=== PATIENT | female | born 1995 | race Caucasian/White ===

== ENCOUNTER 2019-11-03 18:19 | Emergency (ER) | payer OTHER, SELFPAY ==
--- NOTE | ~2019-11-03 | CT_ITS ---
EXAMINATION: CT brain wo con DATE: 11/03/2019 23:22 INDICATION: Migraine headache with pain behind the right eye TECHNIQUE: Computed tomography (CT) of the head was performed without intravenous contrast. Sagittal and coronal reconstructions were performed. The mA was adjusted according to patient size. Iterative reconstruction technique was employed. The dose-length product was 605.33 mGy-cm. COMPARISON: None FINDINGS: No acute intracranial hemorrhage, acute infarction or abnormal extra axial fluid collection. Ventricl es are normal and symmetric. No mass/mass effect. The orbits, paranasal sinuses and mastoid air cells are normal. IMPRESSION: 1. Normal head CT. Reviewed, dictated and finalized at location A. OMER OPERATOR IMPRESSION: 1. Normal head CT.
[2019-11-03 18:49] VITALS: BP 129/76; PULSE 84; RESP 18; TEMP 37.3; O2SAT 100
[2019-11-03 20:34] VITALS: BP 139/86; PULSE 96; RESP 18; O2SAT 98
--- NOTE | 2019-11-03 21:55 | ED.GENADULT ---
HPI - General Adult General Chief complaint: Unspecified Stated complaint: sent by pmd for some kind of seizure Time Seen by Provider: 11/03/19 21:54 Source: patient Mode of arrival: ambulatory Limitations: no limitations History of Present Illness HPI narrative: A 24 y/o female presents to the ED with c/o sharp right sided FRANCO. She states that the FRANCO started this morning and has been constant since. She has a PMHx of FRANCO's and notes that they normally occur in the evenings. Her FRANCO is accompanied by eye pressure, nausea, confusion, trouble remembering things, photophobia, and the sides of her eyes pulsating. She denies vomiting and does not note any activities that cause the FRANCO's. Pt has been prescribed Excedrine for the FRANCO's, but notes that it causes heart palpitations so she does not take it. Ibuprofen does not alleviate the FRANCO. Pt also states that her whole life she has intermittently had BLE cramps where her muscles become extremely tense. She has never been evaluated for the muscle cramps before. For the past 2 weeks she notes that the muscle cramps have become more frequent and now includes all of the muscles in her body. The muscle cramps cause her to hold her breath, but she notes that she is awake and knows what is going on. Pt states that today she called Dr. Obrien for her migraines and told him about the muscle cramps. Dr. Obrien told the patient that the muscle cramps could be responsible for the migraines and advised the pt to go to the ED for further evaluation. She has a PMHx of kidney stones. Pt denies dysuria and hematuria. complaint: FRANCO Onset (ago): hour(s) (This morning) Location: head (Right sided) Pain Consistency: constant Relieving factors: none Exacerbating factors: none Associated symptoms: confusion, nausea/vomiting and other (Eye pressure, trouble remembering things, photophobia, sides of eyes pulsating, body cramps) Related Data Allergies Allergy/AdvReac Type Severity Reaction Status Date / Time metformin Allergy Unknown Headache Verified 04/19/18 11:25 Review of Systems Review of Systems: Narrative: CONSTITUTIONAL: Denies fever, chills, or sweats. EYES: Denies visual changes, redness, or discharge. Reports eye pressure, sides of eyes pulsating, and photophobia. ENT: Denies rhinorrhea, congestion, sore throat, or otalgia. CARDIOVASCULAR: Denies chest pain, palpitations, or edema. RESPIRATORY: Denies cough or dyspnea. GASTROINTESTINAL: Denies abdominal pain, vomiting, or diarrhea. Reports nausea. GENITOURINARY: Denies dysuria or hematuria. SKIN: Denies rash or itching. MUSCULOSKELETAL: Denies back pain, joint pain, or myalgia. Reports body cramps. NEUROLOGIC: Denies numbness or weakness. Reports right sided headache, trouble remembering things, and confusion. All systems reviewed & are unremarkable except as noted in HPI and below PMFSH Past Medical History Medical History (Updated 11/04/19 @ 00:13 by Rosa Kaba MD) Anemia Depression Diabetes Head ache Heart palpitations Kidney stones Seizure Due to anemia at age 1 Ulcer UTI (urinary tract infection) Surgical History Surgical History (Updated 11/03/19 @ 22:57 by Mell Perez) No pertinent past surgical history Family History Family History Father Family history of cardiovascular disease Social History Social History Smoking status: Former smoker Smoking end date: 09/27/17 Alcohol intake: never Gender identity (if verbalized by the patient): Female Exam Narrative: Exam Narrative: GENERAL: Well-appearing, well-nourished, and in no acute distress. HEAD: Normocephalic, atraumatic. EYES: PERRLA and EOMI. ENT: Nares clear, no rhinorrhea or epistaxis. Mucous membranes moist. NECK: Supple. CHEST: Clear to auscultation. No respiratory distress. HEART: Regular rate and rhythm. No murmur heard. Normal peripheral pulses. ABDOMEN: So
[2019-11-03 22:28] LABS: Basophils Percent Auto 0.2 % (0.2-1.2); Eosinophils Percent Auto 0.1 % (0-4.4); Hematocrit 41.6 % (37.0-47.0); Hemoglobin 13.4 g/dL (12.0-15.0); Immature Granulocyte Absolute 0.02 K/mm3 (0.00-0.031); Immature Granulocyte Percent A 0.2 % (0-0.5); Lymphocytes Absolute Auto 2.23 K/mm3 (0.9-3.2); Lymphocytes Percent Auto 24.8 % (18.3-44.2); Mean Corpuscular HGB Conc 32.2 g/dl (32-36); Mean Corpuscular Hemoglobin 29.8 pg (26-34); Mean Corpuscular Volume 92.7 fl (80-100); Mean Platelet Volume 10.1 fl (7.4-10.4); Monocytes Absolute Auto 0.5 K/mm3 (0.1-0.6); Neutrophils Absolute Auto 6.2 K/mm3 (1.3-6.7); Neutrophils Percent Auto 68.7 % (45.5-73.1); Platelet Count Result 387 k/mm3 (150-375); Red Blood Count 4.49 M/mm3 (4.2-5.4); Red Cell Distribution Width 12.4 % (11.5-14.5)
[2019-11-03 22:38] LABS: Creatine Kinase 33 U/L (30-135); Magnesium 2.2 mg/dL (1.6-2.3)
[2019-11-03] MEDS: SODIUM CHLORIDE 0.9% IV 1,000 ML 999 ML IV CONT (22:38)
[2019-11-03] MEDS: KETOROLAC 15 MG/ML VIAL (*BKC) IV PUSH (22:38)
[2019-11-03 23:42] LABS: Blood Urea Nitrogen 7 mg/dL (7-17); Calcium 9.1 mg/dL (8.4-10.2); Carbon Dioxide 22 mmol/L (22-30); Chloride 103 mmol/L (98-107); Estimated CRCL calculation 123 ml/min; Estimated Glomerular Filt Rate > 60; Glucose 86 mg/dL (65-105); Potassium 4.1 mmol/L (3.4-5.0); Sodium 138 mmol/L (137-145)
[2019-11-03 23:56] LABS: Add Urine Microscopic? YES; Appearance Urine Clear (Clear); Bacteria Urine Trace /hpf; Bilirubin Urine Negative (Negative); Blood Urine 1+ (Negative); Color Urine Yellow (Yellow); Glucose Urine UA Negative (Negative); Ketones Urine 1+ mg/dL (Negative); Leukocyte Esterase Ur Negative LEU/UL (Negative); Mucus Urine Heavy /lpf; Nitrate Urine Negative (Negative); Protein Urine Negative (Negative); RBC Urine 0-2 /hpf (0-2); Specific Grav Ur 1.027 (1.001-1.035); Squamous Epithelial Cell Urine Rare /hpf (Few); Urobilinogen Urine Negative mg/dL (<2.0); WBC Urine 0-3 /hpf
[2019-11-04 00:04] VITALS: BP 112/77; PULSE 70; RESP 18; O2SAT 97
== END 2019-11-04 00:26 | disposition home or self-care (01) ==
PROVIDERS: Emergency Provider Emergency Medicine; PCP Internal Medicine
DX: G43.009 Migraine without aura, not intractable, without status migrainosus (principal); Z86.2 Personal history of diseases of the blood and blood-forming organs and certain disorders involving the immune mechanism; E11.9 Type 2 diabetes mellitus without complications; Z87.442 Personal history of urinary calculi; Z87.891 Personal history of nicotine dependence; Z87.440 Personal history of urinary (tract) infections
CPT/HCPCS: 36415; 70450; 80048; 81001; 82550; 83735; 85025; 96361; 96374; 96375; 99284; J0131; J1100; J1200; J1885; J7030

== ENCOUNTER 2022-11-06 12:02 | Outpatient (CLI) | payer OTHER, SELFPAY ==
[2022-11-06 13:35] LABS: Free T4 Free Thyroxine 0.96 ng/mL (0.78-2.19)
[2022-11-06 13:58] LABS: Hemoglobin A1C 5.5 % (<5.7)
[2022-11-06 14:03] LABS: Alanine Aminotransferase 27 U/L (6-35); Albumin Level 4.2 g/dL (3.5-5.1); Alkaline Phosphatase 90 U/L (38-126); Anion Gap 7 mmol/L (8-16); Aspartate Amino Transferase 23 U/L (14-36); Bilirubin,Total 0.4 mg/dL (0.2-1.3); Blood Urea Nitrogen 8 mg/dL (7-17); Calcium 8.7 mg/dL (8.4-10.2); Carbon Dioxide 25 mmol/L (22-30); Chloride 108 mmol/L (98-107); Estimated Glomerular Filt Rate > 60; Glucose 101 mg/dL (65-110); Potassium 4.3 mmol/L (3.4-5.0); Sodium 140 mmol/L (137-145)
[2022-11-06 14:27] LABS: Thyroid Stimulating Hormone 0.646 uIU/mL (0.465-4.680); Total Triiodothyronine (T3) 1.49 NG/ML (0.97-1.69)
== END 2022-11-06 12:03 | disposition home or self-care (01) ==
LOC: ANHLAB 12:06
PROVIDERS: PCP Family Medicine; Visit Provider Family Medicine
DX: E03.9 Hypothyroidism, unspecified (principal); R73.09 Other abnormal glucose; I10 Essential (primary) hypertension
CPT/HCPCS: 36415; 80053; 83036; 84439; 84443; 84480

== ENCOUNTER 2022-11-21 11:19 | Emergency (ER) | payer OTHER, SELFPAY ==
[2022-11-21 11:45] VITALS: BP 114/67; PULSE 102; RESP 16; TEMP 36.9; O2SAT 99
--- NOTE | 2022-11-21 12:26 | ED.URI ---
HPI - URI/Sore Throat General Chief Complaint: Upper Respiratory Infection Stated Complaint: sore throat/fever/jara Time Seen by Provider: 11/21/22 12:26 History of Present Illness HPI Narrative: 27-year-old female presented for complaint of sore throat since yesterday. She endorses today prior she had right-sided neck and right ear pain. She endorses occasional headache and dizziness with a fever up to 102 with sweats. Also reports she has had tonsil stones and has attempted to remove them using a Waterpik. She denies nausea, vomiting, or diarrhea. She took a negative COVID test yesterday. She denies sick contacts. She has been taking Tylenol for symptoms. Related Data Home Medications Medication Instructions Recorded Confirmed drospirenone (contraceptive) 4 mg 1 tablet PO DAILY 11/06/22 11/21/22 (28) tablet (Slynd) Allergies Allergy/AdvReac Type Severity Reaction Status Date / Time metformin Allergy Mild Abdominal Verified 11/21/22 11:58 Pain Review of Systems Review of Systems: per HPI [facility] Past Medical History Medical History Anemia Depression Diabetes Diarrhea Fatigue Head ache Heart palpitations Kidney stones Migraine without status migrainosus 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 age 1 Ulcer UTI (urinary tract infection) Weight gain Surgical History Surgical History No pertinent past surgical history Family History Family History Father Family history of cardiovascular disease Social History Social History Social History: Single Smoking status: Never smoker Smoking end date: 09/27/17 Alcohol intake: current Alcohol use details: Occasionally Substance use: never Substance use type: does not use Living arrangements: with family Occupation/Education: occupation Gender identity (if verbalized by the patient): Female Exam Narrative: GENERAL: well-appearing, no acute distress. EYES: conjunctivae clear ENT: Mucous membranes moist. TMs pearly gomez with normal light reflex bilaterally; no tragal tenderness. Oropharynx erythematous without lesions. Tonsils not enlarged and without exudate or stone. No drooling, no hoarseness, no trismus, uvula midline. No tripod positioning, hot potato voice, or soft palate swelling. NECK: Supple. No lymphadenopathy CHEST: Clear to auscultation, breath sounds equal. No respiratory distress, speaks in full sentences. HEART: Regular rate and rhythm. No murmur heard. SKIN: Warm, dry, no rash. NEURO: Alert and oriented x3. Course Course Emergency Course: Patient is aware of diagnosis, understands and agrees to treatment plan. Anticipatory guidance given. Patient agrees to follow-up as directed and is aware of reasons to seek care at the emergency department. Portions of this record may have been created with voice recognition software Level of Care: Express Care Visit Vital Signs Vital signs: Vital Signs Temperature 98.5 F 11/21/22 11:45 Pulse Rate 102 H 11/21/22 11:45 Respiratory Rate 16 11/21/22 11:45 Blood Pressure 114/67 11/21/22 11:45 Pulse Oximetry 99 11/21/22 11:45 Oxygen Delivery Room Air 11/21/22 11:45 Temperature 98.5 F 11/21/22 11:45 Pulse Rate 102 H 11/21/22 11:45 Respiratory Rate 16 11/21/22 11:45 Blood Pressure 114/67 11/21/22 11:45 Pulse Oximetry 99 11/21/22 11:45 Oxygen Delivery Room Air 11/21/22 11:45 MDM - URI/Sore Throat MDM Narrative Medical decision making narrative: strep result reviewed with pt. Advise supportive treatments. Patient is appropriate for outpatient treatment and follow-up. Differential Diagnosis Differential diagnosis: Likely upper respiratory infection, viral
== END 2022-11-21 12:38 | disposition home or self-care (01) ==
PROVIDERS: Emergency Provider Nurse Practitioner Family
DX: J02.9 Acute pharyngitis, unspecified (principal); E11.9 Type 2 diabetes mellitus without complications
CPT/HCPCS: 87081; 87880; 99213; G0463

== ENCOUNTER 2022-11-22 10:56 | Emergency (ER) | payer OTHER, SELFPAY ==
--- NOTE | ~2022-11-22 | XR_ITS ---
XR chest 2V DATE: 11/22/2022 13:21 INDICATION: Cough, fever TECHNIQUE: November 22, 2022 PA and lateral chest COMPARISON: 08/26/2022, 11/16/2018 PA chest examinations FINDINGS: Chronic stable right cardiophrenic fat pad. Normal heart size. No hilar or mediastinal enlargement. No pulmonary infiltrate or consolidation, pleural effusion or pulmonary vascular congestion or pneumo thorax. Mild thoracic dextroscoliosis IMPRESSION: No active cardiopulmonary disease Reviewed, dictated and finalized at location A. ECTRIC PRESS OPERATOR
[2022-11-22 11:08] VITALS: BP 129/87; PULSE 102; RESP 16; TEMP 38; O2SAT 99
[2022-11-22 12:44] VITALS: BP 127/86; PULSE 93; RESP 18; TEMP 37.7; O2SAT 99
[2022-11-22 12:45] LABS: Basophils Percent Auto 0.4 % (0.2-1.2); Hematocrit 45.1 % (37.0-47.0); Hemoglobin 14.6 g/dL (12.0-15.0); Immature Granulocyte Absolute 0.01 K/mm3 (0.00-0.031); Immature Granulocyte Percent A 0.2 % (0-0.5); Lymphocytes Absolute Auto 0.76 K/mm3 (0.9-3.2); Lymphocytes Percent Auto 14.4 % (18.3-44.2); Mean Corpuscular HGB Conc 32.4 g/dl (32-36); Mean Corpuscular Hemoglobin 29.6 pg (26-34); Mean Corpuscular Volume 91.5 fl (80-100); Mean Platelet Volume 9.9 fl (7.4-10.4); Monocytes Absolute Auto 0.6 K/mm3 (0.1-0.6); Monocytes Percent Auto 11.2 % (2.6-8.5); Neutrophils Absolute Auto 3.9 K/mm3 (1.3-6.7); Neutrophils Percent Auto 73.8 % (45.5-73.1); Platelet Count Result 301 k/mm3 (150-375); Red Blood Count 4.93 M/mm3 (4.2-5.4); Red Cell Distribution Width 13.2 % (11.5-14.5); White Blood Count 5.3 K/mm3 (4.5-10.0)
[2022-11-22 12:57] LABS: Alanine Aminotransferase 39 U/L (6-35); Albumin Level 4.2 g/dL (3.5-5.1); Alkaline Phosphatase 79 U/L (38-126); Anion Gap 6 mmol/L (8-16); Aspartate Amino Transferase 30 U/L (14-36); Bilirubin,Total 0.3 mg/dL (0.2-1.3); Blood Urea Nitrogen 7 mg/dL (7-17); Calcium 8.5 mg/dL (8.4-10.2); Carbon Dioxide 24 mmol/L (22-30); Chloride 103 mmol/L (98-107); Estimated CRCL calculation 111 ml/min; Estimated Glomerular Filt Rate > 60; Glucose 109 mg/dL (65-110); Potassium 4.2 mmol/L (3.4-5.0); Sodium 133 mmol/L (137-145)
[2022-11-22 13:08] LABS: Strep Group A RT-PCR NOT DETECTED (Negative)
[2022-11-22 13:12] LABS: Monoscreen Negative (Negative); Negative Monotest Control Negative (Negative); Positive Monotest Control Positive (Positive)
[2022-11-22 13:22] LABS: Influenza A QL RT-PCR Negative (Negative); Influenza B QL RT-PCR Negative (Negative); RSV RNA, RT-PCR Negative (Negative); SARS-CoV-2 RNA PCR Positive
[2022-11-22] MEDS: ACETAMINOPHEN 500 MG TABLET 1000 MG PO (13:26)
--- NOTE | 2022-11-22 13:51 | ED.URI ---
HPI - URI/Sore Throat General Chief Complaint: Upper Respiratory Infection Stated Complaint: tonsil stones, sore throat Time Seen by Provider: 11/22/22 13:09 Source: patient Mode of arrival: ambulatory Limitations: no limitations History of Present Illness HPI Narrative: This is a 27-year-old female that presents to the emergency department for cold symptoms present over the last 3 days. Reports fever, cough, sore throat, and otalgia. She was seen at the urgent care and had a negative strep test. She also did a home COVID test the first day of symptoms which was negative. She has not been COVID vaccinated. Denies shortness of breath. Related Data Home Medications Medication Instructions Recorded Confirmed drospirenone (contraceptive) 4 mg 1 tablet PO DAILY 11/06/22 11/21/22 (28) tablet (Slynd) Allergies Allergy/AdvReac Type Severity Reaction Status Date / Time metformin Allergy Mild Abdominal Verified 11/21/22 11:58 Pain Review of Systems Review of Systems: CONSTITUTIONAL: Reports fever ENT: Reports congestion, sore throat, and otalgia. RESPIRATORY: Reports cough. Denies dyspnea. All systems reviewed & are unremarkable except as noted in HPI and below PMFSH Past Medical History Medical History Anemia Depression Diabetes Diarrhea Fatigue Head ache Heart palpitations Kidney stones Migraine without status migrainosus 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 age 1 Ulcer UTI (urinary tract infection) Weight gain Surgical History Surgical History No pertinent past surgical history Family History Family History Father Family history of cardiovascular disease Social History Social History Social History: Single Smoking status: Never smoker Smoking end date: 09/27/17 Alcohol intake: current Alcohol use details: Occasionally Substance use: never Substance use type: does not use Living arrangements: with family Occupation/Education: occupation Gender identity (if verbalized by the patient): Female Exam Narrative: GENERAL: Well-appearing, well-nourished, and in no acute distress. HEAD: Normocephalic, atraumatic. EYES: EOMI. ENT: Nares clear, no rhinorrhea or epistaxis. Mucous membranes moist. Oropharynx with redness, without tonsillar hypertrophy. Uvula midline. Bilateral TMs pearly gomez non-bulging NECK: Supple. No adenopathy or masses. CHEST: Clear to auscultation. No respiratory distress. No wheezes rales or rhonchi HEART: Regular rate and rhythm. No murmur heard. Normal peripheral pulses. ABDOMEN: Soft, nontender, nondistended, normal active bowel sounds. EXTREMITIES: Normal range of motion. No edema. SKIN: Warm, dry, no rash. NEURO: No focal deficits. Alert and oriented x3. PSYCH: Normal mood and affect Course Course Emergency Course: Patient updated on work-up and agrees with plan of care Vital Signs Vital signs: Vital Signs Temperature 100.4 F H 11/22/22 11:08 Pulse Rate 102 H 11/22/22 11:08 Respiratory Rate 16 11/22/22 11:08 Blood Pressure 129/87 11/22/22 11:08 Pulse Oximetry 99 11/22/22 11:08 Oxygen Delivery Room Air 11/22/22 11:08 Temperature 99.8 F H 11/22/22 12:44 Pulse Rate 93 11/22/22 12:44 Respiratory Rate 18 11/22/22 12:44 Blood Pressure 127/86 11/22/22 12:44 Pulse Oximetry 99 11/22/22 12:44 Oxygen Delivery Room Air 11/22/22 11:08 MDM - URI/Sore Throat MDM Narrative Medical decision making narrative: Patient presents to the emergency department for cold symptoms ongoing over the last couple of days. Febrile upon arrival, she had just taken an antipyretic prior to arrival. Temperature did down trended. Oxygen saturation is normal on ro
== END 2022-11-22 14:56 | disposition home or self-care (01) ==
PROVIDERS: General Practice; Emergency Provider Physician Assistant; PCP Family Medicine
DX: U07.1 COVID-19 (principal); E11.9 Type 2 diabetes mellitus without complications; Z28.310 Unvaccinated for COVID-19; Z86.2 Personal history of diseases of the blood and blood-forming organs and certain disorders involving the immune mechanism; Z87.442 Personal history of urinary calculi; Z87.440 Personal history of urinary (tract) infections; Z87.891 Personal history of nicotine dependence
CPT/HCPCS: 36415; 71046; 80053; 81025; 85025; 86308; 87637; 87651; 99283; A9270

== ENCOUNTER 2022-11-25 23:27 | Emergency (ER) | payer OTHER, SELFPAY ==
[2022-11-25 23:31] VITALS: BP 128/92; PULSE 88; RESP 20; TEMP 36.9; O2SAT 98
--- NOTE | 2022-11-26 05:07 | PC.NURSE ---
no answer at triage
== END 2022-11-26 05:07 | disposition left against medical advice (07) ==
LOC: ANHED 11-26 05:11
PROVIDERS: PCP Family Medicine
DX: Z53.21 Procedure and treatment not carried out due to patient leaving prior to being seen by health care provider (principal)
CPT/HCPCS: 99199

== ENCOUNTER 2023-03-08 10:24 | Outpatient (CLI) | payer OTHER, SELFPAY ==
[2023-03-08 13:34] LABS: Alanine Aminotransferase 24 U/L (6-35); Albumin Level 4.2 g/dL (3.5-5.1); Alkaline Phosphatase 92 U/L (38-126); Anion Gap 6 mmol/L (8-16); Aspartate Amino Transferase 26 U/L (14-36); Bilirubin,Total 0.2 mg/dL (0.2-1.3); Blood Urea Nitrogen 10 mg/dL (7-17); Calcium 8.8 mg/dL (8.4-10.2); Carbon Dioxide 24 mmol/L (22-30); Chloride 106 mmol/L (98-107); Estimated Glomerular Filt Rate > 60; Glucose 103 mg/dL (65-110); Potassium 4.4 mmol/L (3.4-5.0); Sodium 136 mmol/L (137-145)
== END 2023-03-08 10:25 | disposition home or self-care (01) ==
PROVIDERS: PCP Family Medicine; Visit Provider Nurse Practitioner Family
DX: R00.2 Palpitations (principal)
CPT/HCPCS: 36415; 80053

== ENCOUNTER 2023-04-06 12:01 | Emergency (ER) | payer OTHER, SELFPAY ==
--- NOTE | ~2023-04-06 | XR_ITS ---
Clinical Indication: Chest pain PA and lateral views of the chest: Comparison: 11/22/2022 Findings: The lungs are clear, without evidence of focal consolidation or pleural effusion. Cardiome diastinal silhouette is stable. Bones and soft tissues are unremarkable. Impression: Clear lungs. Reviewed, dictated and finalized at location . Impression: Clear lungs.
--- NOTE | 2023-04-06 12:03 | ECG_ITS ---
Measurements Intervals Mears Rate: 83 P: 0 CO: 143 QRS: 15 QRSD: 84 T: 20 QT: 329 QTc: 387 Interpretive Statements SINUS RHYTHM BASELINE ARTIFACT- III, AVF NORMAL ECG NO PREVIOUS ECG AVAILABLE FOR COMPARISON Electronically Signed On 04-06-2023 12:16:58 CDT by David Hoang D.O.
[2023-04-06 12:08] VITALS: BP 153/95; PULSE 86; RESP 16; TEMP 37.1; O2SAT 99
[2023-04-06 12:15] VITALS: PULSE 120
[2023-04-06] MEDS: ASPIRIN 81 MG CHEWABLE TABLET 324 MG PO (12:21)
--- NOTE | 2023-04-06 12:25 | ED.ARRPALP ---
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 Patient reports numbness of both hands and general fatigue over the last 2 days. Patient is concerned about her health lately and the possibility of POTS. Is scheduled for Holter monitor next week. History of bipolar. Related Data Home Medications Medication Instructions Recorded Confirmed drospirenone (contraceptive) 4 mg 1 tablet PO DAILY 11/06/22 11/21/22 (28) tablet (Slynd) Allergies Allergy/AdvReac Type Severity Reaction Status Date / Time metformin Allergy Mild Abdominal Verified 04/06/23 12:16 Pain Review of Systems Review of Systems: All systems reviewed & are unremarkable except as noted in HPI and below PMFSH Past Medical History Medical History Anemia Depression Diarrhea Fatigue Head ache Heart palpitations Kidney stones Migraine without status migrainosus 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 age 1 Ulcer UTI (urinary tract infection) Weight gain Surgical History Surgical History No pertinent past surgical history Family History Family History (Updated 03/04/23 @ 11:19 by Mary Ang APRN) Grandparent Family history of cardiovascular disease in 40's dad's side Other Family history of cardiovascular disease in his 40's Social History Social History (Updated 03/04/23 @ 10:59 by Mila Camarillo MA) Social History: Single Smoking status: Never smoker Smoking end date: 09/27/17 Alcohol intake: current Alcohol use details: Occasionally Substance use: never Substance use type: does not use Lack of Transportation: No Lack of Food: Never True Current Housing: I Have Housing Concerned About Future Housing: No Difficulty Paying Gas/Electric Bills: No Currently Unemployed: No Education: High School Diploma/GED Difficulty w/ Childcare or Family Care: No Living arrangements: with family Occupation/Education: occupation Gender identity (if verbalized by the patient): Female Exam Narrative: General appearance: Well-developed, well-nourished Skin: Normal color Head: Normocephalic, nontraumatic Eyes: Clear conjunctiva ENT: Oropharynx normal, ears normal, nose normal Neck: Supple, nontender Chest and respiratory: Airway patent, no respiratory distress, no accessory muscle use Heart: Regular rate/rhythm Abdomen: Soft, nontender, no organomegaly, quiet bowel sounds Vascular: Normal peripheral pulses, normal capillary refill. Musculoskeletal: Normal range of motion, nontender back Neurologic: Alert and oriented ?3, PRODUCT PLANNER is normal as tested, no gross motor deficit Course Vital Signs Vital signs: Vital Signs Temperature 37.1 C 04/06/23 12:08 Pulse Rate 86 04/06/23 12:08 Respiratory Rate 16 04/06/23 12:08 Blood Pressure 153/95 H 04/06/23 12:08 Pulse Oximetry 99 04/06/23 12:08 Oxygen Delivery Room Air 04/06/23 12:08 Temperature 37.1 C 04/06/23 12:08 Pulse Rate 80 04/06/23 13:02 Respiratory Rate 23 H 04/06/23 13:02 Blood Pressure 162/104 H 04/06/23 13:02 Pulse Oximetry 9
[2023-04-06 12:53] LABS: Basophils Percent Auto 0.4 % (0.2-1.2); Eosinophils Percent Auto 0.1 % (0-4.4); Hematocrit 48.4 % (37.0-47.0); Hemoglobin 15.6 g/dL (12.0-15.0); Immature Granulocyte Absolute 0.03 K/mm3 (0.00-0.031); Immature Granulocyte Percent A 0.4 % (0-0.5); Lymphocytes Absolute Auto 1.39 K/mm3 (0.9-3.2); Lymphocytes Percent Auto 20.7 % (18.3-44.2); Mean Corpuscular HGB Conc 32.2 g/dl (32-36); Mean Corpuscular Hemoglobin 29.7 pg (26-34); Mean Corpuscular Volume 92.2 fl (80-100); Monocytes Absolute Auto 0.4 K/mm3 (0.1-0.6); Monocytes Percent Auto 5.4 % (2.6-8.5); Neutrophils Absolute Auto 4.9 K/mm3 (1.3-6.7); Platelet Count Result 361 k/mm3 (150-375); Red Blood Count 5.25 M/mm3 (4.2-5.4); Red Cell Distribution Width 12.7 % (11.5-14.5); White Blood Count 6.7 K/mm3 (4.5-10.0)
[2023-04-06 13:02] VITALS: BP 162/104; PULSE 80; RESP 23; O2SAT 96
[2023-04-06 13:02] LABS: Alanine Aminotransferase 25 U/L (6-35); Albumin Level 4.8 g/dL (3.5-5.1); Alkaline Phosphatase 79 U/L (38-126); Anion Gap 7 mmol/L (8-16); Aspartate Amino Transferase 24 U/L (14-36); Bilirubin,Total 0.4 mg/dL (0.2-1.3); Blood Urea Nitrogen 12 mg/dL (7-17); Calcium 9.5 mg/dL (8.4-10.2); Carbon Dioxide 27 mmol/L (22-30); Chloride 105 mmol/L (98-107); Estimated CRCL calculation 124 ml/min; Estimated Glomerular Filt Rate > 60; Glucose 113 mg/dL (65-110); INR 0.9; Lipase 97 U/L (23-300); Potassium 4.1 mmol/L (3.4-5.0); Prothrombin Time 12.7 Seconds (11.1-14.7); Sodium 139 mmol/L (137-145)
[2023-04-06] MEDS: LORazepam (*CRX) 0.5 MG TABLET 1 MG PO (13:02)
[2023-04-06 13:03] LABS: Partial Thromboplastin Time 26.1 SECONDS (22.3-36.8)
[2023-04-06 13:14] LABS: Troponin I < 0.012 ng/mL (0.000-0.034)
[2023-04-06 13:34] LABS: Thyroid Stimulating Hormone 0.932 uIU/mL (0.465-4.680)
== END 2023-04-06 14:06 | disposition home or self-care (01) ==
PROVIDERS: Preventive Medicine Aerospace Medicine; Emergency Provider Emergency Medicine; PCP Nurse Practitioner Family
DX: R00.2 Palpitations (principal); R20.2 Paresthesia of skin; D64.9 Anemia, unspecified; F32.A Depression, unspecified; Z87.440 Personal history of urinary (tract) infections
CPT/HCPCS: 36415; 71046; 80053; 81025; 83690; 84443; 84484; 85025; 85610; 85730; 93005; 99284; A9270

== ENCOUNTER 2023-04-12 08:26 | Outpatient (CLI) | payer OTHER, SELFPAY ==
--- NOTE | 2023-04-12 08:50 | ECHO_ITS ---
Patient Info Name: Niurka Ellis Age: 28 years : 1995 Gender: Female Ht: 61 in Wt: 213 lbs BSA: 2.09 m2 HR: 66 bpm BP: 122 / 66 mmHg Heart Rhythm: Sinus Rhythm Technical Quality: Good Exam Date: 04/12/2023 9:05 AM Exam Location: [facility] Pulmonary Patient Status: Outpatient Admit Date: 04/12/2023 Staff Ordering Physician: Mary Ang APRN Solar Thermal Technician: Devora Robles RDCS Attending Provider: Mary Ang APRN Referring Physician: Ashia GOYAL; Exam Type: CA echo doppler color flow Study Info Indications R00.2 - Palpitations Complete two-dimensional, color flow and Doppler transthoracic echocardiogram is performed. Summary 1. Complete two-dimensional, color flow and Doppler transthoracic echocardiogram is performed. 2. Left ventricular chamber dimension is normal. 3. Left ventricular systolic function is normal, estimated at 55-60%. 4. The left ventricular diastolic function is normal. 5. E/e' 7 is not elevated. Left Ventricle E/e' 7 is not elevated. Left ventricular chamber dimension is normal. Left ventricular systolic function is normal, estimated at 55-60%. The left ventricular diastolic function is normal. Right Ventricle Right ventricular chamber dimension is normal. Right ventricular systolic function is normal. Left Atria Left atrial chamber dimension is normal. Right Atria Right atrial chamber dimension is normal. Aortic Valve The aortic valve is trileaflet. There is no aortic valve stenosis. There is no aortic valve regurgitation. Pulmonic Valve There is no pulmonic regurgitation. Mitral Valve There is no mitral valve stenosis. There is no mitral valve regurgitation. Tricuspid Valve There is no tricuspid valve regurgitation. Pericardium/Pleural There is no pericardial effusion. Inferior Vena Cava Normal inferior vena cava with >50% collapse upon inspiration consistent with normal right atrial pressure, 5 mmHg. Aorta The aortic root size at the sinus of Valsalva is normal. Left Ventricular Outflow Tract Name Value Normal LVOT 2D LVOT Diameter 1.9 cm LVOT Doppler LVOT Peak Gradient 3 mmHg LVOT Mean Gradient 1 mmHg LVOT VTI 17 cm LVOT VTI/AV VTI Ratio 0.6 LVOT Stroke Volume 48 ml LVOT CO 2.7 l/min LVOT CI 1.3 l/min/m2 Pulmonic Valve Name Value Normal RVOT Doppler RVOT Peak Gradient 1 mmHg PV Doppler PV Peak Gradient 3 mmHg Mitral Valve Name Value Normal MV Doppler
--- NOTE | 2023-04-15 15:31 | WPDHOLTEREM ---
Holter/Event Monitor Holter/Event Monitor Date of procedure: 04/12/23 Holter/Event Procedure: 48 Hr Holter Monitor Indications: Palpitations Conclusion: 1. 48 hour holter monitor on 04/12/23. 2. Underlying rhythm is sinus rhythm. HR range 44-140 bpm; average HR 72 bpm. 3. There are 2 premature supraventricular complexes. No supraventricular tachycardia. 4. No premature ventricular complexes. No ventricular tachycardia. 5. No sinoatrial or atrioventricular blocks. No significant pauses greater than 2 seconds. 6. No symptoms available for correlation.
--- NOTE | 2023-04-15 15:33 | WPDHOLTEREM ---
Holter/Event Monitor Holter/Event Monitor Date of procedure: 04/13/23 Holter/Event Procedure: 48 Hr Holter Monitor Indications: Abnormal EKG Conclusion: 1. 48 hour holter monitor on 04/13/23. 2. Underlying rhythm is sinus rhythm. HR range 54-117 bpm; average HR 79 bpm. 3. There are 97 premature supraventricular complexes, 8 supraventricular couplets, 1 supraventricular triplet. No supraventricular tachycardia. 4. There are 194 premature ventricular complexes. No ventricular tachycardia. 5. No sinoatrial or atrioventricular blocks. No significant pauses greater than 2 seconds. 6. No symptoms available for correlation.
== END 2023-04-12 08:27 | disposition home or self-care (01) ==
PROVIDERS: PCP Nurse Practitioner Family; Visit Provider Nurse Practitioner Family
DX: R00.2 Palpitations (principal)
CPT/HCPCS: 93225; 93226; 93306

== ENCOUNTER 2023-06-17 19:21 | Emergency (ER) | payer OTHER, SELFPAY ==
[2023-06-17 19:30] VITALS: BP 132/84; PULSE 88; RESP 16; TEMP 36.9; O2SAT 100
[2023-06-17 19:31] VITALS: BP 132/84; PULSE 88; RESP 16; TEMP 36.9; O2SAT 100
--- NOTE | 2023-06-17 19:54 | ED.EAR ---
HPI - Ear Problem General Chief complaint: Ear Stated complaint: Ears Irritation Time Seen by Provider: 06/17/23 19:45 Source: patient, RN notes reviewed and old records reviewed Mode of arrival: ambulatory Limitations: no limitations History of Present Illness HPI Narrative: 28 year old female who [facility] with complaints of bilateral ear pain with right ear greater than left for a couple months with increased pain today with feelings of dizziness and some sore throat. Patient reports that she has been taking Claritin and also Benadryl for her symptoms. Patient reports history of allergies and ear problems. Patient reports also some sore throat pain today , denies any known fevers or body aches. MD Complaint: ear pain and other (sore throat) Location: bilateral (right worse than left) Severity: moderate Discharge from ear: Reports yes - clear (report some yellow also) Treatment prior to arrival: oral analgesic Related Data Home Medications Medication Instructions Recorded Confirmed drospirenone (contraceptive) 4 mg 1 tablet PO DAILY 11/06/22 06/17/23 (28) tablet (Slynd) Allergies Allergy/AdvReac Type Severity Reaction Status Date / Time metformin Allergy Mild Abdominal Verified 06/17/23 19:30 Pain Review of Systems Review of Systems: CONSTITUTIONAL: Denies malaise, chills, sweats, or fever. EYES: Denies visual changes, redness, or discharge. ENT: Reports rhinorrhea, congestion,no sinus pain, bilateral otalgia and sore throat.some dizziness today at times CARDIOVASCULAR: Denies chest pain, palpitations, or edema. RESPIRATORY: Reports no cough.? Denies dyspnea. GASTROINTESTINAL: Denies abdominal pain, nausea, vomiting, diarrhea SKIN: Denies rash or itching. MUSCULOSKELETAL: Denies myalgia. NEUROLOGIC: Denies headache. All systems reviewed & are unremarkable except as noted in HPI and below PMFSH Past Medical History Medical History Anemia Depression Diarrhea Fatigue Head ache Heart palpitations Kidney stones Migraine without status migrainosus 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 age 1 Ulcer UTI (urinary tract infection) Weight gain Surgical History Surgical History No pertinent past surgical history Family History Family History Grandparent Family history of cardiovascular disease in 40's dad's side Other Family history of cardiovascular disease in his 40's Social History Social History Social History: Single Smoking status: Never smoker Smoking end date: 09/27/17 Alcohol intake: current Alcohol use details: Occasionally Substance use: never Substance use type: does not use Lack of Transportation: No Lack of Food: Never True Current Housing: I Have Housing Concerned About Future Housing: No Difficulty Paying Gas/Electric Bills: No Difficulty Paying for Meds: No Currently Unemployed: No Education: High School Diploma/GED Difficulty w/ Childcare or Family Care: No Living arrangements: with family Occupation/Education: occupation Gender identity (if verbalized by the patient): Female Comments At time of signature, agree with nursing past medical, surgical, social and family history. There is no relevant family history pertinent to the presenting complaint Exam Narrative: GENERAL: Well-appearing, well-nourished, and in no acute distress. HEAD: Normocephalic EYES: PERRLA, conjunctivae clear ENT: Nares clear, turbinates edematous and erythematous, clear discharge. Mucous membranes moist.Tight TM red Left TM pearly gomez with dull light reflex bilaterally; no tragal tenderness. Oropharynx erythematous without lesions. Tonsils red e
== END 2023-06-17 20:08 | disposition home or self-care (01) ==
PROVIDERS: Emergency Provider Registered Nurse; PCP Nurse Practitioner Family
DX: H66.90 Otitis media, unspecified, unspecified ear (principal); J02.9 Acute pharyngitis, unspecified
CPT/HCPCS: 87081; 87880; 99213; G0463

== ENCOUNTER 2023-08-17 19:30 | Emergency (ER) | payer OTHER, SELFPAY ==
--- NOTE | ~2023-08-17 | US_ITS ---
EXAMINATION: US right upper quadrant DATE: 08/17/2023 20:56 INDICATION: Pardo sign positive TECHNIQUE: Multiple grayscale and Doppler ultrasound images of the right upper quadrant were obtained . COMPARISON: CT abdomen pelvis 01/27/2017. FINDINGS: Enlarged echogenic pancreas. No mass noted in the pancreatic bed. The liver is normal with normal echogenicity and echotexture. No surface nodularity. Normal hepatopetal flow in the main lenore l vein. The gallbladder is normal with no abnormal wall thickening, pericholecystic fluid or stones. The common bile duct measures 4 mm. There was no sonographic Pardo sign. IMPRESSION: Enlarged echogenic pancreas which can be seen with pancreatitis. Correlate with pancreatic labs. Otherwise normal right upper quadrant ultrasound findings. Specifically, there were no sonographic fi ndings of acute cholecystitis. Reviewed, dictated and finalized at location [facility] IMPRESSION: Enlarged echogenic pancreas which can be seen with pancreatitis. Correlate with pancreatic labs. Otherwise normal right upper quadrant ultrasound findings. Specifically, there were no sonographic findings of acute cholecystitis.
[2023-08-17 19:32] VITALS: BP 145/88; PULSE 105; RESP 16; TEMP 36.4; O2SAT 99
--- NOTE | 2023-08-17 19:40 | ED.BACK ---
HPI - Back Pain/Injury General Chief Complaint: Back Pain/Injury Stated Complaint: back pain Time Seen by Provider: 08/17/23 19:39 Source: patient Mode of arrival: ambulatory Limitations: no limitations History of Present Illness HPI Narrative: This is a 28 yo female who presents with complaint of right-sided abdominal/flank pain. She has a history of renal calculi. She describes the pain as throbbing/aching; doesn't radiate to groin. She has been taking ibuprofen. She also started having nausea and diarrhea but denies any vomiting or bloody stools. The pain is worse with eating. She denies any fever but has been feeling sweaty. No hematuria, dysuria, urinary urgency or frequency. LMP is unknown as she takes control pill daily. She was experiencing a sharp pain in her RUQ and pain at her shoulder which prompted her co-workers to urge her to leave work and come to the ED. She states her caffeine intake is minimal ever since her previous kidney stone. 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 1 Ulcer UTI (urinary tract infection) Weight gain Surgical History Surgical History No pertinent past surgical history Family History Family History Grandparent Family history of cardiovascular disease in 40's dad's side Other Family history of cardiovascular disease in his 40's Social History Social History Social History: Single Smoking status: Never smoker Smoking end date: 09/27/17 Alcohol intake: current Alcohol use details: Occasionally Substance use: never Substance use type: does not use Lack of Transportation: No Lack of Food: Never True Current Housing: I Have Housing Concerned About Future Housing: No Difficulty Paying Gas/Electric Bills: No Difficulty Paying for Meds: No Currently Unemployed: No Education: High School Diploma/GED Difficulty w/ Childcare or Family Care: No Living arrangements: with family Occupation/Education: occupation Gender identity (if verbalized by the patient): Female Exam Narrative: GENERAL: Well-appearing, well-nourished, and in no acute distress. HEAD: Normocephalic, atraumatic. EYES: EOMI. No photophobia ENT: Nares clear, no rhinorrhea or epistaxis. Mucous membranes moist. NECK: Supple. CHEST: No respiratory distress. HEART: Tachycardic rate and rhythm. ABDOMEN: Soft, nontender, nondistended. Pardo sign positive. EXTREMITIES: Normal range of motion. No edema. SKIN: Warm, dry, no rash. No overlying ecchymosis NEURO: No focal deficits. Alert and oriented x3. PSYCH: Normal mood and affect. Course Vital Signs Vital signs: Vital Signs Temperature 97.5 F L 08/17/23 19:32 Pulse Rate 105 H 08/17/23 19:32 Respiratory Rate 16 08/17/23 19:32 Blood Pressure 145/88 H 08/17/23 19:32 Pulse Oximetry 99 08/17/23 19:32 Oxygen Delivery Room Air 08/17/23 19:32 Temperature 97.5 F L 08/17/23 19:32 Pulse Rate 67 08/17/23 21:47 Respiratory Rate 16 08/17/23 21:47 Blood Pressure 147/98 H 08/17/23 21:47 Pulse Oximetry 100 08/17/23 21:47 Oxygen Delivery Room Air 08/17/23 19:32 MDM - Back Pain/Injury MDM Narrative Medical decision making narrative: Patie
[2023-08-17 20:05] LABS: Appearance Urine Clear (Clear); Bilirubin Urine Negative (Negative); Blood Urine Negative (Negative); Color Urine Yellow (Yellow); Glucose Urine UA Negative (Negative); Ketones Urine Negative (Negative); Leukocyte Esterase Ur Negative LEU/UL (Negative); Nitrate Urine Negative (Negative); Protein Urine Negative (Negative); Specific Grav Ur 1.007 (1.001-1.035); Urobilinogen Urine 0.2 mg/dL (<2.0); pH Urine 5.5 (5.0-9.0)
[2023-08-17 20:08] LABS: Add Urine Microscopic? NO
[2023-08-17 20:13] LABS: Basophils Percent Auto 0.4 % (0.2-1.2); Eosinophils Percent Auto 0.1 % (0-4.4); Hematocrit 43.4 % (37.0-47.0); Hemoglobin 13.7 g/dL (12.0-15.0); Immature Granulocyte Absolute 0.02 K/mm3 (0.00-0.031); Immature Granulocyte Percent A 0.3 % (0-0.5); Lymphocytes Absolute Auto 2.19 K/mm3 (0.9-3.2); Lymphocytes Percent Auto 28.4 % (18.3-44.2); Mean Corpuscular HGB Conc 31.6 g/dl (32-36); Mean Corpuscular Hemoglobin 29.7 pg (26-34); Mean Corpuscular Volume 93.9 fl (80-100); Mean Platelet Volume 9.8 fl (7.4-10.4); Monocytes Absolute Auto 0.4 K/mm3 (0.1-0.6); Monocytes Percent Auto 5.7 % (2.6-8.5); Neutrophils Percent Auto 65.1 % (45.5-73.1); Platelet Count Result 363 k/mm3 (150-375); Red Blood Count 4.62 M/mm3 (4.2-5.4); Red Cell Distribution Width 12.9 % (11.5-14.5); White Blood Count 7.7 K/mm3 (4.5-10.0)
[2023-08-17] MEDS: MORPHINE SULFATE (*CRX) 4 MG/ML INJ IV PUSH (20:14)
[2023-08-17] MEDS: SODIUM CHLORIDE 0.9% IV 1,000 ML 999 ML IV CONT (20:14)
[2023-08-17] MEDS: ONDANSETRON INJ 4 MG/2 ML VIAL IV PUSH (20:14)
[2023-08-17 20:25] LABS: Alanine Aminotransferase 20 U/L (6-35); Albumin Level 4.2 g/dL (3.5-5.1); Alkaline Phosphatase 76 U/L (38-126); Anion Gap 7 mmol/L (8-16); Aspartate Amino Transferase 32 U/L (14-36); Bilirubin,Total 0.4 mg/dL (0.2-1.3); Blood Urea Nitrogen 8 mg/dL (7-17); Carbon Dioxide 28 mmol/L (22-30); Chloride 105 mmol/L (98-107); Estimated CRCL calculation 123 ml/min; Estimated Glomerular Filt Rate > 60; Glucose 92 mg/dL (65-110); Lipase 115 U/L (23-300); Potassium 4.4 mmol/L (3.4-5.0); Sodium 140 mmol/L (137-145)
[2023-08-17] MEDS: IBUPROFEN 600 MG TABLET PO (21:34)
[2023-08-17] MEDS: ACETAMINOPHEN 500 MG TABLET 1000 MG PO (21:34)
[2023-08-17] MEDS: BELLADONNA ALK/PHENOB ELIX 10 ML, MAG HYDROX/ALUMINUM HYD/SIMETH 30 ML, LIDOCAINE HCL 2... PO (21:35)
[2023-08-17 21:47] VITALS: BP 147/98; PULSE 67; RESP 16; O2SAT 100
== END 2023-08-17 21:52 | disposition home or self-care (01) ==
PROVIDERS: Emergency Provider Student in an Organized Health Care Education/Training Program; PCP Nurse Practitioner Family
DX: M54.9 Dorsalgia, unspecified (principal); D64.9 Anemia, unspecified; F32.A Depression, unspecified; Z87.442 Personal history of urinary calculi
CPT/HCPCS: 36415; 76705; 80053; 81003; 81025; 82248; 83690; 85025; 96361; 96374; 96375; 99284; A9270; J2270; J2405; J7030

== ENCOUNTER 2023-09-23 09:48 | Emergency (ER) | payer OTHER, SELFPAY ==
[2023-09-23 10:11] VITALS: BP 119/67; PULSE 86; RESP 16; TEMP 37.1; O2SAT 99
--- NOTE | 2023-09-23 10:40 | ED.URI ---
HPI - URI/Sore Throat General Chief Complaint: Upper Respiratory Infection Stated Complaint: Sore Throat Time Seen by Provider: 09/23/23 10:41 Source: patient, RN notes reviewed and old records reviewed Mode of arrival: ambulatory Limitations: no limitations History of Present Illness HPI Narrative: 28 Year old female presents to the [facility] with complaints of sore throat, runny nose, congestion, ear pain, dry cough, body aches and fevers since yesterday. Has taken a dose of Tylenol, a dose of ibuprofen and 1 dose of Mucinex with no relief. Related Data Home Medications Medication Instructions Recorded Confirmed drospirenone (contraceptive) 4 mg 1 tablet PO DAILY 11/06/22 09/23/23 (28) tablet (Slynd) Allergies Allergy/AdvReac Type Severity Reaction Status Date / Time metformin Allergy Mild Abdominal Verified 09/23/23 10:20 Pain Review of Systems Review of Systems: All systems reviewed & are unremarkable except as noted in HPI and below Constitutional: Constitutional: Reports as per HPI, Reports body ache(s) and Reports fever(s) (Subjective) Eyes: Eyes: Reports no additional eye complaints ENT: Reports as per HPI, Reports otalgia, Reports nasal congestion, Reports nasal discharge and Reports sore throat Cardiovascular: Cardiovascular: Reports no additional cardiovascular complaints, Denies chest pain and Denies dyspnea Respiratory: Respiratory: Reports as per HPI, Denies chest congestion, Reports cough and Denies dyspnea Gastrointestinal: Gastrointestinal: Reports no additional gastrointestinal complaints, Denies abdominal pain, Denies nausea and Denies vomiting Musculoskeletal: Musculoskeletal: Reports no additional musculoskeletal complaints Integumentary/Breasts: Skin/Breast: Reports system reviewed and no additional complaints, except as docu Neurologic: Reports system reviewed and no additional complaints, except as documented Psychiatric: Psychiatric: Reports no additional psychiatric complaints Allergic/Immunologic: Allergic/Immunologic: Reports no additional allergic/immunologic complaints PMFSH Past Medical History Medical History Anemia Depression Diarrhea Fatigue Head ache Heart palpitations Kidney stones Migraine without status migrainosus 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 age 1 Ulcer UTI (urinary tract infection) Weight gain Surgical History Surgical History No pertinent past surgical history Family History Family History Grandparent Family history of cardiovascular disease in 40's dad's side Other Family history of cardiovascular disease in his 40's Social History Social History Social History: Single Smoking status: Never smoker Smoking end date: 09/27/17 Alcohol intake: current Alcohol use details: Occasionally Substance use: never Substance use type: does not use Lack of Transportation: No Lack of Food: Never True Current Housing: I Have Housing Concerned About Future Housing: No Difficulty Paying Gas/Electric Bills: No Difficulty Paying for Meds: No Currently Unemployed: No Education: High School Diploma/GED Difficulty w/ Childcare or Family Care: No Living arrangements: with family Occupation/Education: occupation Gender identity (if verbalized by the patient): Female Comments At the time of my signature, I reviewed and agree with the nursing past medical, surgical, social, and family history. There is no relevant family history pertinent to the patient complaint. Exam Const: General: cooperative, healthy appearing, comfortable, no acute distress, well developed, alert and well nourished Nutritional Appearance: well nourished and obes
== END 2023-09-23 11:00 | disposition home or self-care (01) ==
PROVIDERS: Emergency Provider Nurse Practitioner; PCP Nurse Practitioner Family
DX: J06.9 Acute upper respiratory infection, unspecified (principal); Z20.822 Contact with and (suspected) exposure to COVID-19
CPT/HCPCS: 87081; 87426; 87804; 87880; 99213; C9803; G0463

== ENCOUNTER 2024-11-17 06:54 | Emergency (ER) | payer BC, SELFPAY ==
--- NOTE | ~2024-11-17 | CT_ITS ---
EXAMINATION: CT abdomen pelvis wo con DATE: 11/17/2024 07:40 INDICATION: Flank pain TECHNIQUE: Computed tomography (CT) of the abdomen and pelvis was performed without intravenous contr ast. The dose-length product was 804.31 mGy-cm. Automated exposure control and iterative reconstructi on technique were employed. COMPARISON: CT dated 01/27/2017 FINDINGS: Lung bases are unremarkable. Heart size normal. Prominent right pericardial fat pad. No sig nificant pleural or pericardial effusion. The liver, spleen, pancreas, adrenal glands and kidneys are unremarkable. Gallbladder is present. There is a 5 mm proximal right ureteral stone with minimal hyd ronephrosis.. Bladder is decompressed. Nonobstructive bowel gas pattern. No free air or free fluid. N ormal appendix. No lymphadenopathy. No significant vascular abnormality. No lymphadenopathy. No focal lytic or blastic lesions. IMPRESSION: 1. Proximal right ureteral stone measuring 5 mm with mild hydronephrosis. Reviewed, dictated and finalized at location B. [facility] [place]
--- OUTSIDE RECORDS SUMMARY | 2024-11-17 06:56 | XMS_ITS | Referral Summary ---
Author Organization [facility] Address [address] [place] [address] Care Team Providers Care Procedure Rn Name Role Phone Unavailable Primary Care Provider Unavailabl e Source Comments [facility],non-owned Affiliates and Associated Physician Practices is amultiple site organization consisting of ambulatory clinics and hospital sitesin [place], [place], [place] and [place]. This disclosure is being madepursuant to the Care Everywhere program and may not contain all information available regarding this patient. Last updated 18.[facility] [employer] Social History Tobacco Use Types Packs/Day Years Used Date Smoking Tobacco: Never Assessed Sex and Gender Information Value Date Recorded Sex Assigned at Not on file Gender Identity Not on file Sexual Orientation Not on file Plan of Treatment Not on file
--- OUTSIDE RECORDS SUMMARY | 2024-11-17 06:56 | XMS_ITS | Clinical Summary ---
Author Organization [facility] Address [address] [place] [address] Care Team Providers Care Bale Opener Name Role Phone Murali Obrien DO Primary Care Provider [phone] Allergies No known active allergies Social History Tobacco Use Types Packs/Day Years Used Date Smoking Tobacco: Every Day Cigarettes Smokeless Tobacco: Never Alcohol Use Standard Drinks/Week Comments No 0 (1 standard drink = 0.6 oz pur e alcohol) AUDIT-C Answer Date Recorded Frequency of Alcohol Consumption Never 07/02/2018 Average Number of Drinks Not on file 018 Frequency of Binge Drinking Not on file 02/2018 Comments No Sex and Gender Information Value Date Recorded Sex Assigned at Not on file Legal Sex Female 7:53 PM CDT Gender Identity Not on file Sexual Orientation Not on file Last Filed Vital Signs Vital Sign Reading Time Taken Comments Blood Pressure 131/86 07/02/2018 9:00 AM CDT Pulse 86 07/02/2018 9:00 AM CDT Temperature 36.2 C (97.1 F) 07/02/2018 9:00 AM CDT Respiratory Rate 18 07/02/2018 9:00 AM CDT Oxygen Saturation 98% 07/02/2018 9:00 AM CDT Inhaled Oxygen Concentration - - Weight 81.6 kg (180 lb) 07/02/2018 9:00 AM CDT Height 152.4 cm (5') 07/02/2018 9:00 AM CDT Body Mass Index 35.15 07/02/2018 9:00 AM CDT Plan of Treatment Health Maintenance Due Date Last Done Comments Cervical Cancer Screening Pa p Smear (Age 30 to 64) Every 3 Years 1993 Annual Physical 1996 Pneumococcal Vaccine: Pediat rics (0 to 5 Years) and At-Risk Patients (6 to 64 Years) (1 of 2 - PCV) 1999 Hepatitis C 2011 DTaP, Tdap and Td Vaccines ( 1 - Tdap) 2012 Hepatitis B Vaccines (1 of 3 - 19+ 3-dose series) 2012 Cervical Cancer Screening Pa p with HPV Testing (Age 30 to 64) Every 5 Years 2023 Cervical Cancer Screening with HPV 2023 COVID-19 Vaccine (1 - 2023-2 5 season) 2024 Influenza Adult (#1) 2024 HPV Vaccines Aged Out No longer eligi ble based on patient's age to complete this topic Meningococcal B Vaccine Aged Out No l onger eligible based on patient's age to complete this topic Meningococcal Vaccine Aged Out No arnav tom eligible based on patient's age to complete this topic RSV Immunizations Under 20 Months Aged Out No longer eligible based on patient's age to complete this topic [place] [address] [place] [address] Care Teams Bale Opener Relationship Specialty Start Date End Date Murali Obrien DO [address] [place] [address] PCP - General INTERNAL MEDICINE 07/02/18
--- OUTSIDE RECORDS SUMMARY | 2024-11-17 06:56 | XMS_ITS | Clinical Summary ---
Author Organization [facility] Address [address] [place] [address] Care Team Providers Care Final Tester Name Role Phone Unavailable Primary Care Provider Unavailabl e Source Comments [facility],non-[facility] Affiliates and Associated Physician Practices is amultiple site organization consisting of ambulatory clinics and hospital sitesin [place], [place], [place] and [place]. This disclosure is being madepursuant to the Care Everywhere program and may not contain all information available regarding this patient. Last updated 18.[facility] Social History Tobacco Use Types Packs/Day Years Used Date Smoking Tobacco: Never Assessed Sex and Gender Information Value Date Recorded Sex Assigned at Not on file Gender Identity Not on file Sexual Orientation Not on file Plan of Treatment Health Maintenance Due Date Last Done Comments PAP SMEAR 1993 HIV SCREENING 2008 HEPATITIS C SCREENING 02/27/2011 DTAP/TDAP/TD VACCINES (1 - Tdap) 2012 HEPATITIS B VACCINE (1 of 3 - 19+ 3-dose series) 2012 COVID-19 VACCINE ( - 2023-2 5 season) 2024 INFLUENZA VACCINE (#1) 2024 DEPRESSION SCREENING 09/27/2024 ZOSTER VACCINE (1 of 2) 2043 HIB VACCINE Aged Out No longer eligi ble based on patient's age to complete this topic HPV VACCINE Aged Out No longer eligi ble based on patient's age to complete this topic MENINGOCOCCAL (Group B) VACCINE Aged Out No longer eligible based on patient's age to complete this topic MENINGOCOCCAL VACCINE Aged Out No arnav tom eligible based on patient's age to complete this topic PNEUMOCOCCAL VACCINE Aged Out No long er eligible based on patient's age to complete this topic
--- OUTSIDE RECORDS SUMMARY | 2024-11-17 06:56 | XMS_ITS | Patient Health Summary ---
Author Organization [facility] Address [address] [place] [address] Care Team Providers Care Netting Inspector Name Role Phone Unavailable Primary Care Provider Unavailabl e Note from [facility],non-owned Affiliates and Associated Physician Practices is amultiple site organization consisting of ambulatory clinics and hospital sitesin [place], [place], [place] and [place]. This disclosure is being madepursuant to the Care Everywhere program and may not contain all information available regarding this patient. Last updated 18.[facility] [employer] Social History Tobacco Use Types Packs/Day Years Used Date Smoking Tobacco: Never Assessed Sex and Gender Information Value Date Recorded Sex Assigned at Not on file Gender Identity Not on file Sexual Orientation Not on file
--- OUTSIDE RECORDS SUMMARY | 2024-11-17 06:57 | XMS_ITS | Data Portability ---
Author Organization [facility] [place] Address [address] [place] [address] Care Team Providers Care Proof Sorter Name Role Phone NAVEED SPEARS Primary Care Provider CARLY TALAVERA Primary Care Provider Assessment Encounter Date Assessment Date Assessment LastModified by Organization Details LastModified Time 11/19/2020 11/19/2020 Suggest Calcium with Vitamin D if not eating in diet. Patient advised to get annual flu shot. Recommend yearly physicals and preform monthly breast exams. Genetic testing is available for patients with family history of cancer. Engage in safe sexual practices, use condoms. Encouraged to have daily exercise. Avoid tobacco and illicit drugs, moderation of alcohol. If BMI greater than 25 dietary consult advised. If you have any questions please call or email. [email or web address] Not available 11/19/2020 12:21:57 04/25/2021 04/25/2021 Annual gynecological exam performed. Patient will come back in a year unless there are new symptoms. Suggest Calcium with Vitamin D if not eating in diet. Patient advised to get annual flu shot. Recommend yearly physicals and preform monthly breast exams. Genetic testing is available for patients with family history of cancer. Engage in safe sexual practices, use condoms. Encouraged to have daily exercise. Avoid tobacco and illicit drugs, moderation of alcohol. If BMI greater than 25 dietary consult advised. If you have any questions please call or email. [email or web address] Not available 04/25/2021 12:47:32 12/02/2022 12/02/2022 Annual gynecological exam performed. Patient will come back in a year unless there are new symptoms. Suggest Calcium with Vitamin D if not eating in diet. Patient advised to get annual flu shot. Recommend yearly physicals and preform monthly breast exams. Genetic testing is available for patients with family history of cancer. Engage in safe sexual practices, use condoms. Encouraged to have daily exercise. Avoid tobacco and illicit drugs, moderation of alcohol. If BMI greater than 25 dietary consult advised. If you have any questions please call or email. [email or web address] Not available 12/02/2022 14:12:06 04/29/2024 04/29/2024 Annual gynecological exam performed. Patient will come back in a year unless there are new symptoms. Not available 04/29/2024 12:32:13 Plan of Treatment Reminders Order Date Submit Date Provider Last Modified By Organization Details Last Modified Time Details Appointments None recorded . Lab None recorded . Referral None recorded . Procedures None recorded . Surgeries None recorded . Imaging None recorded . Medication Orders Slynd 4 mg (28) tablet 024 08/01/20 24 [facility] [address] [place], [address], 4 09:55:42 Slynd 4 mg (28) tablet 023 12/03/19 23 [email or web address] 1 [id number] [address], [place], [place], [id number], 4 12:33:42 Slynd 4 mg (28) tablet 021 04/25/20 21 [email or web address] 1 [facility] #[id number], [address], [place], [place], [id number], 4 12:33:42 Slynd 4 mg (28) tablet 021 11/19/19 21 [email or web address] 1 [id number], [address], [place], [id number], 4 12:33:42 Patient TargetsNo targets recorded. Patient Instructions Encounter Date Encounter Id Patient Instructions Last Modified By Organization Details Last Modified Time 11/19/2020 [id number] try slund x 3 months, rf if doing well, if does not like call for appt for other options otherwise miguel a boyd Not available 11/19/2020 12:21:54 Reason for Referral None Reported. Results Created Date Observation Date Name Description Value Unit Range Abnormal Flag Note LastModifiedBy Organization Detail LastModifiedTime 12/03/19 23 12/02/2022 IMAGE GUIDE D PAP, REFLE X HPV IF ASCUS ONLY image guided Pap, reflex HPV ASCUS only SEE RESULT S BELOW CASE REPOR T: Cytol ogy Gynec ologi alexys Repor t Case: [id number] Autho bird plascencia Provi marbella: Cindy King, SHELBY Colle cted: 12/02 1736 Order ing Locat ion: [place] [facility] Recei laureen: 12/03 0816 First Scree n: Edilson Aragon am, CT Speci men: Scree carmela Pap - Image d, Cervi x STATE MENT OF ADEQU ACY: Satis facto ry for evalu ation Trans forma tion zone compo nent prese nt FINAL DIAGN OSIS: Negat kaylen for Intra epith elial Lesio n or Lesli kinsey (NIL) . Elect [place] by Edilson Aragon am, CT on 2022 at 1:00 PM ----- ----- ----- ----- ----- ----- ----- ----- ----- ----- ----- ----- ----- ----- ----- ----- ----- ---- COMME NT: Note: This speci men was revie wed by a Cytot echno logis t and/o r Patho logis t (as indic ated in this repor t) after evalu ation using the Thinp rep Imagi ng Syste m. CLINI ALEXYS INFOR MATIO N: Menst rual Statu s: LMP (if appli cable ): Clini alexys Histo ry/Pr eviou s Pap: Type of Neopl nabila (if appli cable ): Signi fican t Clini alexys Findi ngs: Other Histo ry: Hormo loli (if appli cable ): PAP EDUCA BETTY L NOTE: The Pap Test is a scree carmela test with an inher ent false negat kaylen rate. Liqui d-bas ed sampl ing may decre ase, but will not elimi maria esther, false negat kaylen resul ts. A negat kaylen resul t does not precl ude the prese nce and/o r devel opmen t of disea se, since the prese nce of abnor mal cells in the sampl e depen ds on the locat ion of the lesio n and sampl ing techn ique. Des nued regul ar scree carmela is the best metho d of cance r preve ntion . If repor gurvinder cytol ogic findi ng do not corre late with physi alexys and/o r histo rical findi ngs, furth er inves tigat ion is recom dylan d, as clini aida lara nted. Not Available [facility] (Lab) [address], [place], [address], 12/07/2022 14:02:58 05/01/20 24 05/01/2024 IMAGE GUIDE D PAP AND HPV REGAR DLESS image guided Pap, HPV regardless of Pap result SEE RESULT S BELOW CASE REPOR T: Cytol ogy Gynec ologi alexys Repor t Case: [id number] Autho riyue g Provi marbella: Non-S taff, Physi lynn Colle cted: 05/01 0918 Order ing Locat ion: [place] [facility] Recei laureen: 05/02 0624 First Scree n: Isabella mares, Blanche Rescr een: Eva, Jose Manuel, CT Speci men: Scree carmela Pap - Image d, Cervi x STATE MENT OF ADEQU ACY: Satis facto ry for evalu ation Trans forma tion zone compo nent absen t The absen ce of an endoc ervic al compo nent was confi rmed by an addit ional scree ner. ----- ----- ----- ----- ----- ----- ----- ----- ----- ----- ----- ----- ----- ----- ----- ----- ----- ---- FINAL DIAGN OSIS: Negat kaylen for Intra epith elial Lespablo merrill or Lesli kinsey (NIL) . Elect kj elizabeth d by Jose Manuel Velasquez CT on 2023 at 3:26 PM ----- ----- ----- ----- ----- ----- ----- ----- ----- ----- ----- ----- ----- ----- ----- ----- ----- ---- HPV RESUL TS: HPV mRNA E6/E7 : No HPV mRNA Detec gurvinder NOTE: This high risk HPV mRNA assay detec ts fourt een high- risk HPV types (16, 18, 31, 33, 35, 39, 45, 51, 52, 56, 58, 59, 66, 68) witho ut diffe renti ation . COMME NT: This speci men was revie wed by a Cytot echno logis t and/o r Patho logis t (as indic ated in this repor t) after evalu ation using the Thinp rep Imagi ng Syste m. CLINI ALEXYS INFOR MATIO N: Menst rual Statu s: LMP (if appli cable ): 020 Clini alexys Histo ry/Pr eviou s Pap: Type of Neopl nabila (if appli cable ): Signi ficvishnu t Clini alexys Findi ngs: Other Histo ry: Hormo loli (if appli cable ): PAP EDUCA BETTY L NOTE: The Pap Test is a scree carmela test with an inher ent false negat kaylen rate. Liqui d-bas ed sampl ing may decre ase, but will not elimi maria esther, false negat kaylen resul ts. A negat kaylen resul t does not precl ude the prese nce and/o r devel opmen t of disea se, since the prese nce of abnor mal cells in the sampl e depen ds on the locat ion of the lesio n and sampl ing techn ique. Des nued regul ar scree carmela is the best metho d of cance r preve ntion . If repor gurvinder cytol ogic findi ng do not corre late with physi alexys and/o r histo rical findi ngs, furth er inves tigat ion is recom dylan d, as clini aida warra nted. Not Available [facility] (Lab) [address], [place], [address], 05/08/2024 16:30:33 08/01/20 24 08/01/2024 CT/GC AND TRICH OMONA S VAGIN JOSE DANIEL (RRNA ), URINE chlamydia trachomatis, PCR Negati ve negati ve Not Available [facility] (Lab) [address], [place], [address], 08/02/2024 13:43:26 08/01/20 24 08/01/2024 CT/GC AND TRICH OMONA S VAGIN JOSE DANIEL (RRNA ), URINE neisseria gonorrhoeae, PCR Negati ve negati ve Not Available [facility] ([facility]) [address], [place], [address], 08/02/2024 13:43:26 08/01/20 24 08/01/2024 CT/GC AND TRICH OMONA S VAGIN JOSE DANIEL (RRNA ), URINE trichomonas vaginalis ribosomal RNA (rrna) Negati ve negati ve Not Available [facility] (Lab) [address], [place], [address], 08/02/2024 13:43:26 08/01/20 24 08/01/2024 HIV 1/2 ANTIG EN/AN TIBOD Y, REFLE X CONFI RMATI ON HIV antigen/anti body Nonrea ctive nonrea ctive HIV-1 antig en and HIV-1 /HIV- 2 antib odies were not detec gurvinder. No labor atory evide nce of HIV infec tion. Not Available [facility] (Lab) [address], [place], [address], 08/02/2024 21:01:30 08/01/20 24 08/01/2024 HEPAT ITIS B SURFA CE ANTIG EN hepatitis B surface antigen Non-re active non-re active This assay was perfo rmed using [employer] ratio n reage nts and test kits. Value s obtai nuno with other assay metho ds or kits canno t be used inter gan eably . Not Available [facility] (Lab) [address], [place], [address], 08/02/2024 21:01:30 08/01/20 24 08/01/2024 HEPAT ITIS C ANTIB SILVER SCREE N, REFLE X TO CONFI RMATI ON hepatitis C antibody Non-re active non-re active Antib odies to HCV Not Detec gurvinder, does not exclu de the possi bilit y of expos ure to HCV. Not Available [facility] ([facility]) [address], [place], [address], 08/02/2024 21:01:30 08/01/20 24 08/01/2024 HERPE S SIMPL EX VIRUS TYPE 2 SPECI FIC AB, IGG herpes simplex virus 2 IgG Negati ve negati ve Not Available [facility] (Lab) [address] [place], [address], 08/02/2024 21:01:31 08/01/20 24 08/01/2024 HERPE S SIMPL EX VIRUS TYPE 2 SPECI FIC AB, IGG herpes simples virus 2 IgG, quant <0.2 ai 0.0-0. 8 Not Available [facility] (Lab) [address], [place], [address], 08/02/2024 21:01:31 08/01/20 24 08/01/2024 RPR SCREE N, REFLE X TITER /CONF IRMAT ION RPR screen Nonrea ctive nonrea ctive Not Available [facility] (Lab) [address], [place], [address], 08/02/2024 21:01:31 08/01/20 24 08/01/2024 HEPAT ITIS B CORE, IGM hepatitis B core IgM antibody Non-re active non-re active IgM anti- HBc not detec gurvinder. Does not exclu de the possi bilit y of expos ure to or infec tion with HBV. Not Available [facility] ([facility]) [address], [place], [address], 08/02/2024 21:01:32 Result Notes None recorded. 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 10:33:33 Clinical finding Completed 201711/19/2020 Obesity, unspecif ied;Prac pernell ID: [id number] Marilynn Zacarias [facility] 10:33:24 Pelvic and perineal pain [id number] Completed 201711/19/2020 Pelvic and perineal pain;Pra ctice ID: [id number] Marilynn mills [facility] 10:33:[address] Concept Completed 201711/19/2020 Encntr for general adult medical exam w/o abnormal findings ;Recorde d Elsewher e: No Locat ion: [facility] S ource: EHR Computerized Machine [employer] Cutter dana: N Practi ce ID: [id number] Rom lable Time: 01:45:00 PM Marilynn mills [facility] 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 1 10:33:22 Problem Notes None recorded. Procedures Surgical History Date Name Laterality Status Provider Name and Address Organization Details Recorded Time 04/29/2024 Date of Last Pap Smear completed Marilynn Zacarias [facility] 04/29/2024 12:34:17 Imaging Results None recorded. Procedure Notes None recorded. Medical Equipment None Reported. Allergies No known drug allergies Medications Name Sig Start Date Stop Date Status Note LastModified by Organization Details LastModified Time metformin 500 mg tablet take 1 tablet by oral route 2 times every day with morning and evening meals 01/24 completed Prescrib ed Elsewher e: No Locat ion: [facility] M odify By: juanpablo perez DateTime : 02/02/20 18 09:30:00 AM Not Available Not Available Not Available venlafaxi ne ER 37.5 mg capsule,e xtended release 24 hr TAKE ONE CAPSULE BY MOUTH DAILY 04/29 completed Not Available Not Available Not Available citalopra m 10 mg tablet TAKE 1 TABLET BY MOUTH DAILY 04/29 completed Not Available Not Available Not Available ondansetr on HCl 4 mg tablet TAKE 1 TABLET BY MOUTH EVERY 8 HOURS 04/29 completed Not Available Not Available Not Available sumatript an 50 mg tablet TAKE 1 TABLET BY MOUTH AT ONSET OF HEADACHE . IF NO RELIEF MAY REPEAT AFTER AT LEAST 2 HOURS. MAX 4 TABLETS IN 24 HOURS. 04/29 completed Not Available Not Available Not Available acetamino phen 500 mg tablet TAKE 2 TABLETS BY MOUTH EVERY 6 HOURS NEEDED FOR PAIN 04/29 completed Not Available Not Available Not Available amoxicill in 875 mg tablet TAKE 1 TABLET BY MOUTH EVERY 12 HOURS 04/29 completed Not Available Not Available Not Available Metrogel Vaginal 0.75 % (37.5 mg/5 gram) insert 1 applicat orful by vaginal route for 5 nights at bedtime 01/24 completed Prescrib ed Elsewher e: No Locat ion: [facility] odify By: amkuheneida Rivas ncounter DateTime : 07/08/20 18 02:25:15 PM Not Available Not Available Not Available Banophen 25 mg capsule 03/20 completed Not Available Not Available Not Available hydroxyzi ne HCl 25 mg tablet 12/02 completed Not Available Not Available Not Available ibuprofen 600 mg tablet TAKE 1 TABLET BY MOUTH THREE TIMES DAILY FOR 5 DAYS NEEDED FOR PAIN 04/29 completed Not Available Not Available Not Available albuterol sulfate HFA 90 mcg/actua tion aerosol inhaler INHALE 2 PUFFS BY MOUTH EVERY 4 HOURS NEEDED FOR SHORTNES S OF BREATH AND FOR WHEEZING active Not Available Not Available No t Available Vitamin D2 1,250 mcg (50,000 unit) capsule take 1 capsule by oral route every week 01/24 completed Prescrib ed Elsewher e: No Locat ion: [facility] odify By: amkuheneida Rivas ncounter DateTime : 12/18/19 18 12:50:13 PM Not Available Not Available Not Available fluticaso ne propionat e 50 mcg/actua tion nasal spray,christine pension USE 2 SPRAY(S) IN EACH NOSTRIL ONCE DAILY active Not Available Not Available No t Available metoclopr amide 10 mg tablet 03/20 completed Not Available Not Available Not Available amoxicill in 875 mg-potass ium clavulana te 125 mg tablet TAKE 1 TABLET BY MOUTH TWICE DAILY 08/01 completed Not Available Not Available Not Available hydroxyzi ne pamoate 25 mg capsule TAKE 1 TO 2 CAPSULES BY MOUTH AT NIGHT NEEDED 12/02 completed Not Available Not Available Not Available aripipraz ole 10 mg tablet 12/02 completed Not Available Not Available Not Available aripipraz ole 5 mg tablet 12/02 completed Not Available Not Available Not Available Tri-Sprin matilde (28) 0.18 mg(7)/0.2 15 mg(7)/0.2 5 mg(7)-35 mcg tablet Take 1 tablet every day by oral route. 11/19 completed Not Available Not Available Not Available escitalop justin 5 mg tablet take 1 tablet by oral route every day 01/24 completed Prescrib ed Elsewher e: Yes Loca tion: [facility] M odjennifer By: amkuhl E ncounter DateTime : 07/19/20 17 01:00:00 PM Not Available Not Available Not Available duloxetin e 30 mg capsule,d elayed release 03/20 completed Not Available Not Available Not Available duloxetin e 60 mg capsule,d elayed release 03/20 completed Not Available Not Available Not Available Carlos 3 mg-0.03 mg tablet TAKE 1 TABLET BY MOUTH EVERY DAY 04/25 completed Not Available Not Available Not Available topiramat e XR 25 mg capsule,e xtended release 24 hr TAKE 1 CAPSULE BY MOUTH ONCE DAILY FOR 7 DAYS active Not Available Not Available No t Available topiramat e XR 50 mg capsule sprinkle, extended release 24 hr TAKE 1 CAPSULE BY MOUTH ONCE DAILY active Not Available Not Available No t Available Slynd 4 mg (28) tablet TAKE 1 TABLET BY MOUTH ONCE DAILY active Not Available Not Available No t Available Vitals Date Recorded Body height Body mass index (BMI) Body weight Systolic blood pressure Diastolic blood pressure Provider Name and Address Organization Details Last Updated DateTime 04/25/2021 152.4 cm 39.6 kg/m2 87261.25 g 117 mm[Hg] 88 mm[Hg] Marilynn Zacarias [facility] 1 12:22:04 Date Recorded Body height Body mass index (BMI) Body weight Systolic blood pressure Diastolic blood pressure Provider Name and Address Organization Details Last Updated DateTime 12/02/2022 152.4 cm 43.2 kg/m2 025830.9 1 g 126 mm[Hg] 85 mm[Hg] Marilynn Zacarias [facility] 3 14:09:40 Date Recorded Body height Body mass index (BMI) Body weight Systolic blood pressure Diastolic blood pressure Provider Name and Address Organization Details Last Updated DateTime 04/29/2024 152.4 cm 47.5 kg/m2 831605.9 5 g 123 mm[Hg] 83 mm[Hg] Marilynn Zacarias [facility] 4 12:33:06 Date Recorded Body height Body mass index (BMI) Body weight Systolic blood pressure Diastolic blood pressure Provider Name and Address Organization Details Last Updated DateTime 08/01/2024 152.4 cm 47.5 kg/m2 163536.9 5 g 129 mm[Hg] 82 mm[Hg] Toshia Coyle [facility] 4 09:36:33 Date Recorded Body height Body mass index (BMI) Body weight Systolic blood pressure Diastolic blood pressure Provider Name and Address Organization Details Last Updated DateTime 11/19/2020 152.4 cm 38.7 kg/m2 04589.29 g 120 mm[Hg] 79 mm[Hg] Marilynn Zacarias [facility] 1 10:33:10 Social History Question Answer Notes LastModified by Organizat ion Details LastModified Time Tobacco Smoking Status Current Every Day Smoker Marilynn Zacarias [facility] 12/02/2022 14:10:24 What Is Your Level Of Alcohol Consumption? Occasional Information not available 11/19/2020 If You Are , What Was Your Level Of Alcohol Consumption Prior To ? None Information not available 12/02/2022 How Many Years Have You Consumed Alcohol? 13 [email or web address] Information not available 12/02/2022 Are You Blind Or Do You Have Difficulty Seeing? Yes [email or web address] Information not available 12/02/2022 What Is Your Level Of Caffeine Consumption? Occasional [email or web address] Information not available 12/02/2022 How Much Tobacco Do You Chew? None [email or web address] Information not available 04/29/2024 In The 14 Days Before Symptom Onset, Have You Had Close Contact With A Laboratory-confir med COVID-19 While That Case Was Ill? No [email or web address] Information not available 11/19/2020 In The 14 Days Before Symptom Onset, Have You Had Close Contact With A Person Who Is Under Investigation For COVID-19 While That Person Was Ill? No [email or web address] Information not available 11/19/2020 Have You Been To An Area Known To Be High Risk For COVID-19? No [email or web address] Information not available 04/29/2024 Are You Deaf Or Do You Have Serious Difficulty Hearing? No [email or web address] Information not available 04/25/2021 What Type Of Diet Are You Following? REGULAR [email or web address] Information not available 04/25/2021 What Is The Highest Grade Or Level Of School You Have Completed Or The Highest Degree You Have Received? 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 No [email or web address] Information not available 12/02/2022 What Was The Date Of Your Most Recent Tobacco Screening? 04/29/2024 [email or web address] Information not available 04/29/2024 Have You Ever Been Counseled For Unhealthy Alcohol Use? No [email or web address] Information not available 12/02/2022 Do You Use Protection During Sex? Always [email or web address] Information not available 04/29/2024 Do You Use Your Seat Belt Or Car Seat Routinely? Yes [email or web address] Information not available 11/19/2020 Do You Have Smoke And Carbon Monoxide Detectors In Your Home? Yes [email or web address] Information not available 11/19/2020 How Much Tobacco Do You Smoke? No [email or web address] Information not available 12/02/2022 Do You Feel Stressed (tense, Restless, Nervous, Or Anxious, Or Unable To Sleep At Night)? [id number] [email or web address] Information not available 12/02/2022 Do You Use Any Illicit Or Recreational Drugs? No [email or web address] Information not available 11/19/2020 Do You Use Sunscreen Routinely? Yes [email or web address] Information not available 04/29/2024 Has Tobacco Cessation Counseling Been Provided? No [email or web address] Information not available 12/02/2022 Have You Used IV Drugs? No [email or web address] Information not available 12/02/2022 Do You Or Have You Ever Used Any Other Forms Of Tobacco Or Nicotine? No [email or web address] Information not available 12/02/2022 Sex: Unknown Functional Status Question Answer Note LastModified by Organizat ion Details LastModified Time Do you have difficulty walking or climbing stairs? No [email or web address] Information not available 12/02/2022 Are you able to walk? YESWOREST [email or web address] Information not available 04/25/2021 Are you able to care for yourself? Yes [email or web address] Information not available 12/02/2022 Do you have difficulty dressing or bathing? No [email or web address] Information not available 12/02/2022 What is your exercise level? Occasional [email or web address] Information not available 03/20/2020 Mental Status None recorded. Family History Relationship Description Onset Age of this Age Resolved Age Notes LastModified by Organization Details LastModified Time Father Substance abuse [email or web address] Not available 12/02 14:10:22 Father Asthma Not available 0 04/29/2024 12:18:46 Paternal Uncle Depressive disorder [email or web address] Not available 12/02 14:10:22 Paternal Uncle Substance abuse [email or web address] Not available 12/02 14:10:22 Mother Anemia [email or web address] Not available 0 04/29/2024 12:18:46 Notes:BOTH MOM AND DAD ARE A DOPTED Father: Asthma Mother: Anemia Medical History Condition Response Allergies (Food, seasonal, environmental ) N Other N Blood Transfusion N Drug/Latex Allergies/Reactions N Breast Cancer N Dermatologic Disorders N Lung Disease N Defects or Inherited Disease N Breast Problem N Gestational Diabetes N Hematologic disorders N Anesthesia Complications N History of STI N Deep Vein Thrombosis N Polycystic ovary syndrome N Anxiety Disorder Y Autoimmune disease N Arthritis N Infertility N Polyps N Acid Reflux (GERD) Y History of abnormal pap N Cancer N Stroke N Varicosities N Neurologic/Epilepsy Y Endometriosis N High Cholesterol N Headaches Y Fibromyalgia N Kidney Disease N Heart Problems N Kidney or Bladder Problems N Thyroid Problems N GI Problems N Eating Disorder N Anemia N Art (IVF or FET) N Psychiatric Illness Y Ovarian Cancer N Diabetes N Pulmonary (TB, Asthma) N Hepatitis/Liver Disease N No Past Medical History N Eczema N Urinary Tract Infection Y Abuse/Domestic Violence N Asthma N Trauma/Violence N Depression/ depression Y Heart Disease N Pre-Eclampsia N Hypertension N Osteoporosis N Thrombophilias N Gynecological History Statement/Question Response Abnormal Pap N Date of Last Mammogram Date of LMP 07/24/2024 Was last menstrual period normal Y STIs/STDs N HPV Vaccine N Duration of Flow (days) 3 Current Control Method None Are cycles usually normal Y Date of Last Colonoscopy Menses Monthly Y Date of DEXA bone scan Age of first menstrual cycle 11 Date of Last Pap Smear 04/29/2024 Desired Control Method Unknown LMP Definite Obstetrics History GPAL:G 0 P 0 0 0 0 Type Value Living 0 Total 0 Past Encounters Encounter ID Performer Location Encounter Start Date Encounter Closed Date Diagnosis/Indication Diagnosis SNOMED-CT Code Diagnosis ICD10 Code Diagnosis Note [id number] Cindy Cortes [facility] [address],[place] [address] 03/20/2020 11:23:47 03/20/2020 12:38:16 Gynecologic examination 54027235 Z01.419 Surveillan ce of oral contraception 907931610 Z30.41 [id number] Cindy Cortes [facility] [address],[place] [address] 11/19/2020 10:13:16 11/19/2020 12:31:12 Contraception care management 521311502 Z30.9 [id number] Cindy Cortes [facility] [address],[place] [address] 04/25/2021 12:00:59 04/25/2021 13:31:06 Gynecologic examination 39200472 Z01.419 [id number] Cindy Cortes [facility] [address],[place] [address] 12/02/2022 13:54:10 12/02/2022 14:54:32 Gynecologic examination 93575671 Z01.419 [id number] Nicolas Walker MD [facility] [address],[place] [address] 04/29/2024 12:17:18 04/29/2024 13:08:20 Abnormal uterine bleeding [id number] 9100 N93.9 Gynecologi c examination 32931628 Z01.419 Annual gynecologi alexys exam performed. Patient will come back in a year unless there are new symptoms. Suggest Calcium with Vitamin D if not eating in diet. Patient advised to get annual flu shot. Recommend yearly physicals and preform monthly breast exams. Genetic testing is available for patients with family history of cancer. Engage in safe sexual practices, use condoms. Encouraged to have daily exercise. Avoid tobacco and illicit drugs, moderation of alcohol. If BMI greater than 25 dietary consult advised. If you have any questions please call or email. Pap smear- done laboratory evaluation - done [id number] Nicolas Walker MD [facility] [address],[place] [address] 08/01/2024 09:11:59 08/01/2024 10:09:46 Gynecologic examination 73766352 Z01.419 Z11.51 Venereal d isease screening 281116902 Z11.3 This patient is 29-year-ol d female presents for STD screening. She entered a sexual relationsh ip with a new person. We agreed to the urine testing for gonorrhea, chlamydia, Trichomona s and the blood testing for the blood borne sexually transmitte d diseases. She was counseled on prevention . We also agreed to restart of her oral contracept kaylen pills. She is taking Slynd. She was given precaution s, instructio ns. She was given prescripti on. She also was warned of the risks, benefits, and alternativ es. Contracept ion care management 312714126 Z30.9 Health Concerns Section Related Observation LastModified by Organization Detai ls LastModified Time None Recorded Concern Status LastModified by Organization Details LastModified Time None Recorded Advance Directives Directive None Recorded Payers Encounter Date Sequence Insurance Name Policy Number Policy Lin Covered Member ID Lin Member ID Guarantor Name 11/19/2020 1 [facility] PRIOR TO 03/27/2021 (MEDICAID REPLACEMENT - HMO) Niurka Ellis [id number] Niurka Ellis 04/25/2021 1 [facility] PRIOR TO 03/27/2021 (MEDICAID REPLACEMENT - HMO) Niurka Ellis [id number] Niurka Ellis 04/29/2024 1 [place] [id number] Niurka Ellis [id number] Niurka Ellis 08/01/2024 1 [place] [id number] Niurka Ellis [id number] Niurka Ellis Notes Date Note Type Note Provider Name and Address Organization Details Recorded Time 11/19/2020 text/html started, carlos t o try and fix heavy bleeding, bleeding very minimal now but cramping increased also some anxiety with new pill. also hx of ovrian cysts would like follow up Cindy Cortes CNM [address], [place], [address], [facility] 11/19/2020 12:22:13 04/25/2021 text/html Annual GYNReport ed bypatient.Menstrual cycle:Normal menses Urinary symptoms:No hematuria; No incontinence Vulva:No genital lesion Vagina:Normal vaginal discharge Breast:No breast pain; No breast lump; No nipple discharge Current Contraception:Satisf ied with current contraception; Oral contraceptives Sexual complaints:No sexual complaints; No pain during intercourse; Normal libido Menopausal Symptoms:No menopausal symptoms; Normal vaginal lubrication Psychological symptoms:No depression; No anxiety; No PMDD Preventive measures:Encourage self breast examination; Encourage regular exercise; Encourage no tobacco useNotes:cramps resolved with slynd would like to continue, pap due 2021 Cindy Cortes CNM [address], [place], [address], [facility] 04/25/2021 12:47:59 12/02/2022 text/html Annual GYNReport ed bypatient.History:no gynecologic complaints; no change in interval history Menstrual cycle:Normal menses Urinary symptoms:No hematuria; No incontinence Vulva:No genital lesion Vagina:Normal vaginal discharge Breast:No breast pain; No breast lump; No nipple discharge Sexual complaints:No sexual complaints; No pain during intercourse; Normal libido Menopausal Symptoms:No menopausal symptoms; Normal vaginal lubrication Psychological symptoms:No depression; No anxiety; No PMDD Preventive measures:Encourage self breast examination; Encourage regular exercise; Encourage no tobacco useNotes:declines sti testing Cindy Cortes CNM [address], [place], [address], [facility] 12/02/2022 14:24:16 04/29/2024 text/html Annual GYNReport ed bypatient.History:no gynecologic complaints Menstrual cycle:Normal menses Urinary symptoms:No hematuria; No incontinence Vulva:No genital lesion Vagina:Normal vaginal discharge Breast:No breast pain; No breast lump Current Contraception: control not practiced Menopausal Symptoms:No menopausal symptoms Psychological symptoms:No depression; No anxiety Preventive measures:Encourage self breast examination; Encourage regular exercise Nicolas Walker MD [address], [place], [address], [facility] 04/29/2024 13:07:17 08/01/2024 text/html This patient is 29-year-old female presents for STD screening. She entered a sexual relationship with a new person. We agreed to the urine testing for gonorrhea, chlamydia, Trichomonas and the blood testing for the blood borne sexually transmitted diseases. She was counseled on prevention. We also agreed to restart of her oral contraceptive pills. She is taking Slynd. She was given precautions, instructions. She was given prescription. She also was warned of the risks, benefits, and alternatives. Nicolas Walker MD [address], [place], [address], [facility] 08/01/2024 10:03:33 OBGyn Episode No OBEpisode recorded.
--- OUTSIDE RECORDS SUMMARY | 2024-11-17 06:57 | XMS_ITS | Patient Health Record ---
Author Organization [facility] Address [address] [place] [address] Care Team Providers Care Api Developer Name Role Phone Jennifer Garcia Primary Care Provider Allergies No Known Allergies Reason For Referral No Information Medications Medication SIG (Take, Route, Frequency, Duration) Notes Start Date End Date Status Lexapro 10 MG 1 tablet Orally Once a day for 30 day(s) Active Abilify 5 MG 1 tablet Orally Once a day in the morning for 30 day(s) Active Slynd Active Escitalopram Oxalate 10 MG TAKE 1 TABLET BY MOUTH EVERY DAY for 30 Active Benadryl OTC- for migraines A ctive Social History Tobacco Use: Social History Observation Description Date Details (start date - stop date) Current Smoker NA - NA Dont use, Tobacco Use/Smoking Question Answer Notes Are you a current smoker Problems Problem Type SNOMED Code ICD Code Onset Dates Problem Status W/U Status Risk Notes Problem Generalized anxiety disorder (49054450) Generalized anxiety disorder (F41.1) 03/19/20 21 Active confirmed r/o OCD Problem Mood disorder (42340037) Mood disorder (F39) Active confirmed Likely Bipolar I Problem Posttraumatic stress disorder (96005264) Post traumatic stress disorder (PTSD) (F43.10) 03/19/20 21 Active confirmed PCL-5 42 Plan Of Treatment No Information Insurance Providers Payer Name Payer Address Payer Phone Subscriber Number Group Number Insured Name Patient Relationship to Insured Coverage Start Date Coverage End Date [facility] Claims Department [address] [place] [address] [phone] [id number] Niurka Ellis Self - patient is the insured 7 [facility] Attn Claims Department [address] [place] [address] [phone] Niurka Ellis Self - patient is the insured 1 Medical (General) History Surgical History Surgery Date(Month/Year)
--- NOTE | 2024-11-17 07:22 | PC.NURSE ---
Pt complains of migraine and states she took at 0530 2 tylenol and 3 ibuprofen
[2024-11-17 07:26] LABS: BEDSIDEPREGUCG Negative (Negative)
[2024-11-17 07:39] LABS: Basophils Percent Auto 0.4 % (0.2-1.2); Eosinophils Percent Auto 0.4 % (0-4.4); Hematocrit 46.4 % (37.0-47.0); Hemoglobin 14.6 g/dL (12.0-15.0); Immature Granulocyte Absolute 0.03 K/mm3 (0.00-0.031); Immature Granulocyte Percent A 0.4 % (0-0.5); Lymphocytes Absolute Auto 1.82 K/mm3 (0.9-3.2); Lymphocytes Percent Auto 24.6 % (18.3-44.2); Mean Corpuscular HGB Conc 31.5 g/dl (32-36); Mean Corpuscular Hemoglobin 28.7 pg (26-34); Mean Corpuscular Volume 91.2 fl (80-100); Mean Platelet Volume 9.3 fl (7.4-10.4); Monocytes Absolute Auto 0.5 K/mm3 (0.1-0.6); Monocytes Percent Auto 6.6 % (2.6-8.5); Neutrophils Percent Auto 67.6 % (45.5-73.1); Platelet Count Result 411 k/mm3 (150-375); Red Blood Count 5.09 M/mm3 (4.2-5.4); Red Cell Distribution Width 13.4 % (11.5-14.5); White Blood Count 7.4 K/mm3 (4.5-10.0)
[2024-11-17 07:49] LABS: Chloride 107 mmol/L (98-107)
[2024-11-17 07:51] LABS: Alanine Aminotransferase 29 U/L (6-35); Albumin Level 4.1 g/dL (3.5-5.1); Alkaline Phosphatase 88 U/L (38-126); Anion Gap 10 mmol/L (4-12); Aspartate Amino Transferase 25 U/L (14-36); Bilirubin,Total 0.6 mg/dL (0.2-1.3); Blood Urea Nitrogen 10 mg/dL (7-17); Calcium 8.8 mg/dL (8.4-10.2); Carbon Dioxide 23 mmol/L (22-30); Estimated CRCL calculation 115 ml/min; Estimated Glomerular Filt Rate > 60; Glucose 119 mg/dL (65-110); Potassium 4.2 mmol/L (3.4-5.0); Sodium 140 mmol/L (137-145)
[2024-11-17] MEDS: SODIUM CHLORIDE 0.9% IV 1,000 ML 999 ML IV CONT (08:17)
[2024-11-17] MEDS: KETOROLAC 30 MG/ML VIAL (*BKC) IV PUSH (08:17)
[2024-11-17] MEDS: ONDANSETRON INJ 4 MG/2 ML VIAL IV PUSH (08:17)
[2024-11-17 08:31] LABS: Add Urine Microscopic? YES; Appearance Urine Cloudy (Clear); Bacteria Urine 1+ /hpf; Bilirubin Urine Negative (Negative); Blood Urine 3+ (Negative); Color Urine Yellow (Yellow); Glucose Urine UA Negative (Negative); Ketones Urine Negative (Negative); Leukocyte Esterase Ur 1+ LEU/UL (Negative); Mucus Urine Present /lpf; Need Manual Microscopic Reviewed; Nitrate Urine Negative (Negative); Protein Urine 1+ mg/dL (Negative); RBC Urine >100 /hpf (0-2); Specific Grav Ur 1.023 (1.001-1.035); Squamous Epithelial Cell Urine Moderate /hpf (Few); Urobilinogen Urine 0.2 mg/dL (<2.0); pH Urine 5.5 (5.0-9.0)
--- OUTSIDE RECORDS SUMMARY | 2024-11-17 08:34 | XMS_ITS | Clinical Summary ---
Author Organization [facility] Address [address] [place] [address] Care Team Providers Care Button Grader Name Role Phone Unavailable Primary Care Provider Unavailabl e Source Comments [facility],non-[facility] Affiliates and Associated Physician Practices is amultiple site organization consisting of ambulatory clinics and hospital sitesin [place], [place], [place] and [place]. This disclosure is being madepursuant to the Care Everywhere program and may not contain all information available regarding this patient. Last updated 18.[facility] Social History Tobacco Use Types Packs/Day Years [...]
--- OUTSIDE RECORDS SUMMARY | 2024-11-17 08:34 | XMS_ITS | Referral Summary ---
Author Organization [facility] Address [address] [place] [address] Care Team Providers Care Foundation Assistant Name Role Phone Unavailable Primary Care Provider Unavailabl e Source Comments [facility],non-owned Affiliates and Associated Physician Practices is amultiple site organization consisting of ambulatory clinics and hospital sitesin [place], [place], [place] and [place]. This disclosure is being madepursuant to the Care Everywhere program and may not contain all information available regarding this patient. Last updated 18.[facility] [employer] Social History Tobacco Use Types Packs/Day Years Used Date Smoking Tobacco: Never Assessed Sex and Gender Information Value Date Recorded Sex Assigned at Not on file Gender Identity Not on file Sexual Orientation Not on file Plan of Treatment Not on file
--- OUTSIDE RECORDS SUMMARY | 2024-11-17 08:34 | XMS_ITS | Clinical Summary ---
Author Organization [facility] Address [facility]ly [facility] [place] [address] Care Team Providers Care Speech Language Pathologist Name Role Phone Murali Obrien DO Primary Care Provider [phone] Allergies No known active allergies Social History [...] patient's age to complete this topic Insurance [address] [address] Care Teams Speech Language Pathologist Relationship Specialty Start Date End Date Murali Obrien DO [address] [place] [address] PCP - General INTERNAL MEDICINE 07/02/18
--- OUTSIDE RECORDS SUMMARY | 2024-11-17 08:34 | XMS_ITS | Patient Health Summary ---
Author Organization [facility] Address [address] [place] [address] Care Team Providers Care Milk Tester Name Role Phone Unavailable Primary Care Provider Unavailabl e Note from [facility],non-owned Affiliates and Associated Physician Practices is amultiple site organization consisting of ambulatory clinics and hospital sitesin [place], [place], [place] and [place]. This disclosure is being madepursuant to the Care Everywhere program and may not contain all information available regarding this patient. Last updated 18.[facility] [email or web address] Social History Tobacco Use Types Packs/Day Years Used Date Smoking Tobacco: Never Assessed Sex and Gender Information Value Date Recorded Sex Assigned at Not on file Gender Identity Not on file Sexual Orientation Not on file
--- NOTE | 2024-11-17 10:43 | ED.GENADULT ---
HPI - General Adult General Chief complaint: Urogenital-Female Stated complaint: right flank pain Time Seen by Provider: 11/17/24 07:26 History of Present Illness HPI narrative: Patient is a 29-year-old female who presents ER with sudden onset right flank pain. Began this morning. Associated with nausea. Feels similar to previous kidney stone in the past. No fevers or chills or sweats. No urinary frequency urgency or dysuria. No hematuria. Related Data Allergies Allergy/AdvReac Type Severity Reaction Status Date / Time metformin Allergy Mild Abdominal Verified 11/17/24 06:55 Pain Review of Systems Review of Systems: All systems reviewed & are unremarkable except as noted in HPI and below Constitutional: Constitutional: Reports no additional constitutional complaints Gastrointestinal: Gastrointestinal: Reports no additional gastrointestinal complaints Genitourinary: Genitourinary: Reports no additional female genitourinary complaints Musculoskeletal: Musculoskeletal: Reports no additional musculoskeletal complaints [facility] Past Medical History Medical History (Updated 11/17/24 @ 10:54 by Mario Ellis MD) Weight gain Mild episode of recurrent major depressive disorder Migraine without status migrainosus Fatigue Diarrhea Head ache Heart palpitations Depression Kidney stones UTI (urinary tract infection) Ulcer Anemia Seizure Due to anemia at age 1 Surgical History Surgical History No pertinent past surgical history Family History Family History Grandparent Family history of cardiovascular disease in 40's dad's side Other Family history of cardiovascular disease in his 40's Social History Social History (Updated 07/03/24 @ 11:47 by Milagros Catalan CMA) Social History: Single Smoking status: Never smoker Smoking end date: 09/27/17 Alcohol intake: current Alcohol use details: Occasionally Substance use: never Substance use type: does not use Do You Feel Safe in your Home?: Yes Lack of Transportation: No Lack of Food: Never True Current Housing: I Have Housing Concerned About Future Housing: No Difficulty Paying Gas/Electric Bills: No Difficulty Paying for Meds: No Currently Unemployed: No Education: High School Diploma/GED Difficulty w/ Childcare or Family Care: No Living arrangements: with family Occupation/Education: occupation Gender identity (if verbalized by the patient): Female Sexual Orientation (if Verbalized by the Patient): Straight or Heterosexual Spiritual care concerns: No Agree to blood products: Yes Exam Narrative: GENERAL: Well-appearing, well-nourished, and in no acute distress. HEAD: Normocephalic, atraumatic. ENT: Mucous membranes moist. CHEST: Clear to auscultation. No respiratory distress. HEART: Regular rate and rhythm. Normal peripheral pulses. ABDOMEN: Soft, nontender, nondistended. Right CVA discomfort. EXTREMITIES: Normal range of motion. No edema. SKIN: Warm, dry, no rash. NEURO: Alert and oriented x3. PSYCH: Normal mood and affect. Course Course Emergency Course: Pain improved. Informed results. Appropriate for discharge home with pain control. Recommend hydration. Cautiously treat with antibiotics given leukocyte esterase and bacteria but it is a poor sample given moderate squamous epithelial cells. Medical Decision Making Lab Data 11/17/24 07:30 11/17/24 07:30 Labs: Lab Results 11/17/24 11/17/24 Range/Units 07:23 07:30 WBC 7.4 (4.5-10.0) K/mm3 RBC 5.09 (4.2-5.4) M/mm3 Hgb 14.6 (12.0-15.0) g/dL Hct 46.4 (37.0-47.0) % MCV 91.2 (80-100) fl MCH 28.7 (26-34) pg MCHC 31.5 L (32-36) g/dl RDW 13.4 (11.5-14.5) % Plt Count 411 H (150-375) k/mm3 MPV 9.3 (7.4-10.4) fl Immature Gran % (Auto) 0.4 (0-0.5) % Neut % (Auto) 67.6 (45.5-73.1) % Lymph % (Auto) 24.6 (18.3-44.2) % Andrew % (Auto) 6.6 (2.6-8.5) % Eos % (Auto) 0.4 (0-4.4) % Baso % (Auto) 0.4 (0.2-1.2) % Lymph # (Auto) 1.82 (0.9-3.2) K/mm3 Andrew # (Auto) 0.5 (0.1-0.6) K/mm3 Eos # (Auto) 0.0 (0-0.3) K/mm3 Baso # (Auto) 0.0 (0.0-0.1) K/mm3 Abs Immat Gran (auto) 0.03 (0.00-0.031) K/mm3 Absolute Neuts (auto) 5.0 (1.3-6.7) K/mm3 Absolute Nucleated RBC 0.000 (0.0-0.012) K/mm3 Nucleated RBC % 0.0 (0.0-0.2) % Sodium 140 (137-145) mmol/L Potassium 4.2 (3.4-5.0) mmol/L Chloride 107 (98-107) mmol/L Carbon Dioxide 23 (22-30) mmol/L Anion Gap 10 (4-12) mmol/L BUN 10 (7-17) mg/dL Creatinine 0.68 L (0.7-1.0) mg/dL Estim Creat Clear Calc 115 ml/min Estimated GFR > 60 (59 - ) Glucose 119 H (65-110) mg/dL Calcium 8.8 (8.4-10.2) mg/dL Total Bilirubin 0.6 (0.2-1.3) mg/dL AST 25 (14-36) U/L ALT 29 (6-35) U/L Alkaline Phosphatase 88 (38-126) U/L Total Protein 8.0 (6.3-8.2) g/dL Albumin 4.1 (3.5-5.1) g/dL Urine Color Yellow (Yellow) Urine Appearance Cloudy H (Clear) Urine pH 5.5 (5.0-9.0) Ur Specific [place] 1.023 (1.001-1.035) Urine Protein 1+ H (Negative) mg/dL Urine Glucose (UA) Negative (Negative) mg/dL Urine Ketones Negative (Negative) mg/dL Ur Blood (Man) 3+ H (Negative) Urine Nitrate Negative (Negative) Urine Bilirubin Negative (Negative) Urine Urobilinogen 0.2 (<2.0) mg/dL Add Ur Microanalysis Reviewed Leukocyte Esterase Rfl 1+ H (Negative) IVETTE/UL Urine RBC >100 H (0-2) /hpf Urine WBC 11-20 H (0-3) /hpf Ur Squamous Epith Cells Moderate (Few) /hpf Urine Bacteria 1+ H /hpf Urine Casts 3-5 Urine Mucus Present /lpf POC Urine HCG, Qual Negative (Negative) Imaging Data Radiologist's impression: ITS Impressions Abdomen/Pelvis CT 11/17/24 07:56 IMPRESSION: 1. Proximal right ureteral stone measuring 5 mm with mild hydronephrosis. Discharge Plan Discharge Clinical Impression: Ureterolithiasis Patient Disposition: Home, Self-Care Condition: Stable Instructions: Kidney Stones (ED) Additional Instructions: Your passing kidney stone. Drink plenty of water. Take Tylenol with hydrocodone for pain control, Zofran for nausea. He had a little bacteria in your urine but are not having symptoms of UTI. Your being put on antibiotics as a precaution. Return to the ER immediately if you have fever over 100.4? F, you cannot keep down food/water/medication, you have worsening pain, or you have additional concerns. Patient Language: Azeri Prescriptions: New hydrocodone-acetaminophen 5-325 mg tablet 1 tablet PO Q6H PRN (Reason: pain) Qty: 14 0RF tamsulosin 0.4 mg capsule 0.4 mg PO DAILY Qty: 7 0RF ondansetron 4 mg tablet,disintegrating 4 mg PO Q6H PRN (Reason: nausea and vomiting) Qty: 10 0RF cefuroxime axetil 500 mg tablet 500 mg PO BID Qty: 14 0RF No Action sumatriptan succinate 50 mg tablet See Rx Instructions .ROUTE .COMPLEX Qty: 14 0RF Dose Instruction: TAKE 1 TABLET BY MOUTH AT ONSET OF HEADACHE; IF NO RELIEF MAY REPEAT 1 TABLET AFTER AT LEAST 2 HOURS. MAXIMUM DAILY DOSE IS 4 TABLETS Rx Instructions: TAKE 1 TABLET BY MOUTH AT ONSET OF HEADACHE; IF NO RELIEF MAY REPEAT 1 TABLET AFTER AT LEAST 2 HOURS. MAXIMUM DAILY DOSE IS 4 TABLETS amoxicillin-pot clavulanate 875-125 mg tablet 1 tablet PO BID Qty: 20 0RF albuterol sulfate 90 mcg/actuation HFA aerosol inhaler 2 inh inhalation Q4H PRN (Reason: shortness of breath or wheezing) Qty: 8.5 0RF Mucinex DM 30-600 mg tablet extended release 12 hr See Rx Instructions PO Q12H PRN (Reason: cough) Qty: 30 0RF Rx Instructions: 1-2 tablest orally every 12 hours PRN; fluticasone propionate [Flonase Allergy Relief] 50 mcg/actuation spray,suspension 2 spray intranasal DAILY Qty: 16 2RF Rx Instructions: administer into each nostril ibuprofen 600 mg tablet 600 mg PO TID PRN (Reason: pain) 5 Days Qty: 14 0RF topiramate 50 mg capsule,extended release 24hr 100 mg PO DAILY Qty: 60 1RF Follow-up/Referrals: Byron Pena MD [Physician] - 1 Week Mary Ang APRN [Primary Care Provider] -
[2024-11-17 11:17] VITALS: BP 122/78; PULSE 63; RESP 16; TEMP 35.6; O2SAT 99
== END 2024-11-17 11:18 | disposition home or self-care (01) ==
PROVIDERS: Emergency Medicine; Emergency Provider Emergency Medicine; PCP Nurse Practitioner Family
DX: N13.2 Hydronephrosis with renal and ureteral calculous obstruction (principal); Z87.440 Personal history of urinary (tract) infections; Z87.442 Personal history of urinary calculi; Z86.2 Personal history of diseases of the blood and blood-forming organs and certain disorders involving the immune mechanism; Z87.891 Personal history of nicotine dependence
CPT/HCPCS: 36415; 74176; 80053; 81001; 81025; 85025; 96361; 96374; 96375; 99284; J1885; J2405; J7030

== ENCOUNTER 2025-03-09 08:39 | Outpatient (CLI) | payer BC, SELFPAY ==
--- NOTE | 2025-03-09 08:45 | EST_ITS ---
Patient Info Name: Niurka Ellis Age: 30 years : 1995 Gender: Female Ht: 61 in Wt: 225 lbs BSA: 2.16 m2 HR: 69 bpm BP: 140 / 74 mmHg Exam Date: 03/09/2025 8:45 AM Patient Status: O Admit Date: 03/09/2025 Exam Type: CA stress test treadmill A treadmill exercise stress test was performed. Staff Attending Provider: Mary Ang Exercise Technologist: Debora Marin Exercise Physician: David Hoang DO Summary 1. 1. Negative Albert exercise stress test for ischemic ST changes by ECG criteria. 2. 2. Reduced functional capacity, achieving 8 METs of workload. 3. 3. Baseline hypertension. 4. 4. Appropriate HR response to exercise. 5. 5. Appropriate HR recovery at 1 minute post exercise. 6. 6. No imaging with stress testing. 7. 7. Patient informed of the above results. Protocol: Albert Stress ECG Details Stage: REST Duration (min): 0 min : 50 sec Speed (mph): 0.0 Grade (%): 0 HR (bpm): 68 SBP (mmHg): 140 DBP (mmHg): 74 METS: --- Stage: REST Duration (min): 5 min : 4 sec Speed (mph): 0.0 Grade (%): 0 HR (bpm): 77 SBP (mmHg): 140 DBP (mmHg): 74 METS: --- Stage: REST Duration (min): 9 min : 57 sec Speed (mph): 0.0 Grade (%): 0 HR (bpm): 75 SBP (mmHg): 140 DBP (mmHg): 74 METS: --- Stage: STAGE 1 Duration (min): 1 min : 0 sec Speed (mph): 1.7 Grade (%): 10 HR (bpm): 110 SBP (mmHg): 140 DBP (mmHg): 74 METS: --- Stage: STAGE 1 Duration (min): 2 min : 0 sec Speed (mph): 1.7 Grade (%): 10 HR (bpm): 131 SBP (mmHg): 140 DBP (mmHg): 74 METS: --- Stage: STAGE 1 Duration (min): 3 min : 0 sec Speed (mph): 1.7 Grade (%): 10 HR (bpm): 129 SBP (mmHg): 170 DBP (mmHg): 69 METS: --- Stage: STAGE 2 Duration (min): 1 min : 0 sec Speed (mph): 2.5 Grade (%): 12 HR (bpm): 139 SBP (mmHg): 170 DBP (mmHg): 69 METS: --- Stage: STAGE 2 Duration (min): 2 min : 0 sec Speed (mph): 2.5 Grade (%): 12 HR (bpm): 146 SBP (mmHg): 194 DBP (mmHg): 71 METS: --- Stage: STAGE 2 Duration (min): 3 min : 0 sec Speed (mph): 2.5 Grade (%): 12 HR (bpm): 151 SBP (mmHg): 194 DBP (mmHg): 71 METS: --- Stage: STAGE 3 Duration (min): 0 min : 32 sec Speed (mph): 3.4 Grade (%): 14 HR (bpm): 171 SBP (mmHg): 194 DBP (mmHg): 71 METS: --- Stage: RECOVERY Duration (min): 0 min : 27 sec Speed (mph): 0.0 Grade (%): 0 HR (bpm): 155 SBP (mmHg): 184 DBP (mmHg): 79 METS: --- Stage: RECOVERY Duration (min): 1 min : 27 sec Speed (mph): 0.0 Grade (%): 0 HR (bpm): 127 SBP (mmHg): 184 DBP (mmHg): 79 METS: --- Stage: RECOVERY Duration (min): 2 min : 27 sec Speed (mph): 0.0 Grade (%): 0 HR (bpm): 114 SBP (mmHg): 184 DBP (mmHg): 79 METS: --- Stage: RECOVERY Duration (min): 3 min : 2 sec Speed (mph): 0.0 Grade (%): 0 HR (bpm): 115 SBP (mmHg): 168 DBP (mmHg): 61 METS: --- Rest HR: 75 bpm Peak HR: 171 bpm Rest Sys BP: 140 mmHg Peak Sys BP: 194 mmHg Max Pred HR: 188 bpm % Max Pred HR: 91 % Target HR: 160 bpm Max RPP: 33,174 bpm*mmHg Mitchell Score: 4 Termination Reason: Reached target heart rate or workload Cardiac Symptoms: Shortness of breath Max ST Seg Deviation: 0.60 mm Total Time: 6 min : 32 sec Rest Alberts BP: 74 mmHg Peak Alberts BP: 71 mmHg Angina Score: None Total METS: 8.0 Resting ECG Sinus rhythm. Stress ECG No ST changes. Arrhythmias None. Report Signatures
--- NOTE | 2025-03-09 08:45 | ECHO_ITS ---
Patient Info Name: Niurka Ellis Age: 30 years : 1995 Gender: Female Ht: 61 in Wt: 225 lbs BSA: 2.16 m2 HR: 65 bpm BP: 126 / 94 mmHg Technical Quality: Good Exam Date: 03/09/2025 9:19 AM Patient Status: O Admit Date: 03/09/2025 Exam Type: CA echo doppler color flow Complete two-dimensional, color flow and Doppler transthoracic echocardiogram is performed. Railcar Mechanic: Adilia Benson Attending Provider: Mary Ang Summary 1. Complete two-dimensional, color flow and Doppler transthoracic echocardiogram is performed. 2. Left ventricular chamber dimension is normal. 3. Left ventricular systolic function is normal, estimated at 60-65. 4. The left ventricular diastolic function is normal. 5. E/e' 6 is not elevated. Left Ventricle E/e' 6 is not elevated. Left ventricular chamber dimension is normal. Left ventricular systolic function is normal, estimated at 60-65. The left ventricular diastolic function is normal. Right Ventricle Right ventricular chamber dimension is normal. Right ventricular systolic function is normal. Left Atria Left atrial chamber dimension is normal. Right Atria Right atrial chamber dimension is normal. Aortic Valve The aortic valve is trileaflet. There is no aortic valve stenosis. There is no aortic valve regurgitation. Pulmonic Valve There is no pulmonic regurgitation. Mitral Valve There is no mitral valve stenosis. There is no mitral valve regurgitation. Tricuspid Valve There is no tricuspid valve regurgitation. Pericardium/Pleural There is no pericardial effusion. Inferior Vena Cava Normal inferior vena cava with >50% collapse upon inspiration consistent with normal right atrial pressure, 5 mmHg. Aorta The aortic root size at the sinus of Valsalva is normal. Left Ventricular Outflow Tract Name Value Normal LVOT 2D LVOT Diameter 2.0 cm LVOT Doppler LVOT Peak Velocity 112 cm/s LVOT Peak Gradient 5 mmHg LVOT Mean Gradient 3 mmHg LVOT VTI 23 cm LVOT VTI/AV VTI Ratio 0.8 LVOT Stroke Volume 71 ml LVOT CO 4.3 l/min LVOT CI 2.0 l/min/m2 Pulmonic Valve Name Value Normal RVOT Doppler RVOT Peak Velocity 68 cm/s RVOT Peak Gradient 2 mmHg PV Doppler PV Peak Velocity 114 cm/s PV Peak Gradient 5 mmHg Mitral Valve Name Value Normal MV Diastolic Function MV E Peak Velocity 77 cm/s MV A Peak Velocity 47 cm/s MV E/A 1.6 MV Decel Time (PW) 220 ms MV Annular TDI MV E/e' (Septal) 8.2 MV E/e' (Lateral) 5.6 MV E/e' (Average) 6.9 Tricuspid Valve Name Value Normal Estimated PAP/RSVP RA Pressure 5 mmHg <=5 Aortic Valve Name Value Normal AV Doppler AV Peak Velocity 140 cm/s AV Peak Gradient 8 mmHg AV Mean Gradient 4 mmHg AV VTI 30 cm AV Area (Cont Eq VTI) 2.4 cm2 >=3.0 AV Area (Cont Eq Stone) 2.5 cm2 AV DI (Stone) 0.80 AV Regurgitation 2D LVOT Area 3.1 cm2 Ventricles Name Value Normal LV Dimensions 2D/MM IVS Diastolic Thickness (2D) 1.0 cm 0.6-1.0 LVID Diastole (2D) 4.3 cm 3.8-5.2 LVIW Diastolic Thickness (2D) 0.9 cm 0.6-0.9 LVID Systole (2D) 3.0 cm 2.2-3.5 LVOT Diameter 2.0 cm LV Mass (2D Cubed) 132.99 g 67.00-162.00 LV Mass Index (2D Cubed) 62 g/m2 43-95 Relative Wall Thickness (2D) 0.43 <=0.42 LV Fractional Shortening/Ejection Fraction 2D/MM LV Fractional Shortening (2D) 31 % 27-45 LV EF (2D Teichholz) 60 % LV Diastolic Volume (4C MOD) 67 ml LV EF (4C MOD) 53 % LV Diastolic Volume (2C MOD) 54 ml LV EF (2C MOD) 55 % LV Diastolic Volume (BP MOD) 61 ml 46-106 LV Diastolic Volume Index (BP MOD) 28 ml/m2 29-61 LV Systolic Volume (BP MOD) 28 ml 14-42 LV Systolic Volume Index (BP MOD) 13 ml/m2 8-24 LV EF (BP MOD) 54 % 54-74 LV Diastolic Length (4C) 7.8 cm LV Systolic Length (4C) 6.2 cm LV Stroke Volume (4C MOD) 36 ml Atria Name Value Normal LA Dimensions LA Volume (4C A-L) 36 ml LA Volume (BP A-L) 26 ml RA Dimensions RA Systolic Major [place] Length (4C) 4.3 cm 2.2-2.8 RA Area (4C) 10.3 cm2 <=18.0 Report Signatures
--- OUTSIDE RECORDS SUMMARY | 2025-03-09 08:45 | XMS_ITS | Clinical Summary ---
Author Organization [facility] Address [address] [place] [address] Care Team Providers Care Physician Industrial Name Role Phone Unavailable Primary Care Provider Unavailabl e Source Comments [facility],non-[facility]iliates and Associated Physician Practices is amultiple site organization consisting of ambulatory clinics and hospital sitesin [place], [place], [place] and [place]. This disclosure is being madepursuant to the Care Everywhere program and may not contain all information available regarding this patient. Last updated 18.[facility] Social History Tobacco Use Types Packs/Day Years Used Date Smoking Tobacco: Never Assessed Comments Unknown Sex and Gender Information Value Date Recorded Sex Assigned at Not on file Legal Sex Female 5:36 AM [employer] Gender Identity Not on file Sexual Orientation Not on file Plan of Treatment Health Maintenance Due Date Last Done Comments HIV SCREENING 2008 HEPATITIS C SCREENING 02/27/2011 DTAP/TDAP/TD VACCINES (1 - Tdap) 2012 HEPATITIS B VACCINE (1 of 3 - 19+ 3-dose series) 2012 COVID-19 VACCINE (1 - 2023-2 5 season) 2024 DEPRESSION SCREENING 09/27/2024 INFLUENZA VACCINE (Season Ended) 2025 ZOSTER VACCINE (1 of 2) 2043 HIB VACCINE Aged Out No longer eligi ble based on patient's age to complete this topic HPV VACCINE Aged Out No longer eligi ble based on patient's age to complete this topic MENINGOCOCCAL (Group B) VACC INE SHARED DECISION-MAKING Aged Out No longer eligibl e based on patient's age to complete this topic MENINGOCOCCAL GROUPS A/C/Y/W VACCINE Aged Out No longer eligible b ased on patient's age to complete this topic PNEUMOCOCCAL VACCINE Aged Out No long er eligible based on patient's age to complete this topic
--- OUTSIDE RECORDS SUMMARY | 2025-03-09 08:45 | XMS_ITS | Data Portability ---
Author Organization [facility] [place] Address [address] [place] [address] Care Team Providers Care Housing Quality Standard Inspector Name Role Phone NAVEED SPEARS Primary Care [...] have any questions please call or email. [email or web address] Not available 11/19/2020 12:21:57 04/25/2021 04/25/2021 Annual [...] have any questions please call or email. [email or web address] Not available 04/25/2021 12:47:32 12/02/2022 12/02/2022 Annual [...] have any questions please call or email. [email or web address] Not available 12/02/2022 14:12:06 04/29/2024 04/29/2024 Annual gynecological exam performed. Patient will come back in a year unless there are new symptoms. [email or web address] Not available 04/29/2024 12:32:13 Plan of Treatment Reminders Order Date Submit Date Provider Last Modified By Organization Details Last Modified Time Details Appointments None recorded . Lab None recorded . Referral None recorded . Procedures None recorded . Surgeries None recorded . Imaging None recorded . Medication Orders Slynd 4 mg (28) tablet 024 08/01/20 24 [facility] [address] [place], [address], 4 09:55:42 Slynd 4 mg (28) tablet 023 12/03/19 23 [email or web address] 1 [id number], [address], [place], [place], [id number], 4 12:33:42 Slynd 4 mg (28) tablet 021 04/25/20 21 [email or web address] 1 [facility] #[id number], [address], [place], [place], [id number], 4 12:33:42 Slynd 4 mg (28) tablet 021 11/19/19 21 [email or web address] 1 [facility], [address] [place], [place], [id number], 4 12:33:42 Patient TargetsNo targets recorded. Patient Instructions Encounter Date Encounter Id Patient Instructions Last Modified By Organization Details Last Modified Time 11/19/2020 [id number] try slund x 3 months, rf if [...] as clini aida lara nted. Not Available [facility] (Lab) [address], [place], [address], 12/07/2022 14:02:58 05/01/20 24 05/01/2024 IMAGE GUIDE [...] as clini aida warra nted. Not Available [facility] (Lab) [address], [place], [address], 05/08/2024 16:30:33 08/01/20 24 08/01/2024 CT/GC AND TRICH OMONA S VAGIN JOSE DANIEL (RRNA ), URINE chlamydia trachomatis, PCR Negati ve negati ve Not Available [facility] (Lab) [address], [place], [address], 08/02/2024 13:43:26 08/01/20 24 08/01/2024 CT/GC AND TRICH OMONA S VAGIN JOSE DANIEL (RRNA ), URINE neisseria gonorrhoeae, PCR Negati ve negati ve Not Available [facility] (Lab) [address], [place], [address], 08/02/2024 13:43:26 08/01/20 24 08/01/2024 CT/GC AND TRICH OMONA S VAGIN JOSE DANIEL (RRNA ), URINE trichomonas vaginalis ribosomal RNA (rrna) Negati ve negati ve Not Available [facility] (Lab) [address], [place], [address], 08/02/2024 13:43:26 08/01/20 24 08/01/2024 HIV 1/2 ANTIG EN/AN TIBOD Y, REFLE X CONFI RMATI ON HIV antigen/anti body Nonrea ctive nonrea ctive HIV-1 antig en and HIV-1 /HIV- 2 antib odies were not detec gurvinder. No labor atory evide nce of HIV infec tion. Not Available [facility] (Lab) [address], [place], [address], 08/02/2024 21:01:30 08/01/20 24 08/01/2024 HEPAT ITIS B SURFA CE ANTIG EN hepatitis B surface antigen Non-re active non-re active This assay was perfo rmed using [employer] ratio n reage nts and test kits. Value s obtai nuno with other assay metho ds or kits canno t be used inter gan eably . Not Available [facility] (Lab) [address], [place], [address], 08/02/2024 21:01:30 08/01/20 24 08/01/2024 HEPAT ITIS C ANTIB SILVER SCREE N, REFLE X TO CONFI RMATI ON hepatitis C antibody Non-re active non-re active Antib odies to HCV Not Detec gurvinder, does not exclu de the possi bilit y of expos ure to HCV. Not Available [facility] (Lab) [address], [place], [address], 08/02/2024 21:01:30 08/01/20 24 08/01/2024 HERPE S SIMPL EX VIRUS TYPE 2 SPECI FIC AB, IGG herpes simplex virus 2 IgG Negati ve negati ve Not Available [facility] (Lab) [address] [place], [address], 08/02/2024 21:01:31 08/01/20 24 08/01/2024 HERPE S SIMPL EX VIRUS TYPE 2 SPECI FIC AB, IGG herpes simples virus 2 IgG, quant <0.2 ai 0.0-0. 8 Not Available [facility] (Lab) [address], [place], [address], 08/02/2024 21:01:31 08/01/20 24 08/01/2024 RPR SCREE N, REFLE X TITER /CONF IRMAT ION RPR screen Nonrea ctive nonrea ctive Not Available [facility] (Lab) [address], [place], [address], 08/02/2024 21:01:31 08/01/20 24 08/01/2024 HEPAT ITIS B CORE, IGM hepatitis B core IgM antibody Non-re active non-re active IgM anti- HBc not detec gurvinder. Does not exclu de the possi bilit y of expos ure to or infec tion with HBV. Not Available [facility] (Lab) [address], [place], [address], 08/02/2024 21:01:32 Result Notes None recorded. Problems Name Problem SNOMED Code Status Onset Date Resolution Date Notes Provider Name and Address Organization Details Recorded Time SNOMED CT Concept Completed 201811/19/2020 Encntr for cardio clinician exam (general ) (routine ) w/o abn findings ;Practic e ID: [id number] Marilynn mills [facility] 10:33:33 Clinical finding Completed 201711/19/2020 Obesity, unspecif ied;Prac pernell ID: [id number] Marilynn Zacarias [facility] 10:33:24 Pelvic and perineal pain [id number] Completed 201711/19/2020 Pelvic and perineal pain;Pra ctice ID: [id number] Marilynn mills [facility] 10:33:[address] Concept Completed 201711/19/2020 Encntr for general adult medical exam w/o abnormal findings ;Recorde d Elsewher e: No Locat ion: [facility] S ource: EHR Gis Developer dana: N Practi ce ID: [id number] Rom lable Time: 01:45:00 PM Marilynn mills [facility] 10:33:31 Abnormal weight gain [id number] Completed 201611/19/2020 Abnormal weight gain;Rec orded Elsewher e: No [facility]: EHR Gis Developer dana: N Cheryl ce ID: [id number] Rom lable Time: 01:00:00 PM Marilynn Zacarias [facility] 1 10:33:22 Problem Notes None recorded. Procedures Surgical History Date Name Laterality Status Provider Name and Address Organization Details Recorded Time 04/29/2024 Date of Last Pap Smear completed Marilynn Zacarias [facility] 04/29/2024 12:34:17 Imaging Results None [...] Prescrib ed Elsewher e: No Locat ion: [facility] M odify By: [email or web address] perez DateTime : [...] Prescrib ed Elsewher e: No Locat ion: [facility] odify By: [email or web address] Rivas ncounter DateTime [...] Prescrib ed Elsewher e: No Locat ion: [facility] odify By: [email or web address] Rivas ncounter DateTime [...] matilde (28) 0.18 mg(7)/0.2 15 mg(7)/0.2 5 mg(7)-0.0 35 mg tablet Take 1 tablet every day by oral route. 11/19 completed Not Available Not Available Not Available escitalop justin 5 mg tablet take 1 tablet by oral route every day 01/24 completed Prescrib ed Elsewher e: Yes [facility] M odjennifer By: [email or web address] E ncounter DateTime [...] Updated DateTime 11/19/2020 152.4 cm 38.7 kg/m2 88439.29 g 120 mm[Hg] 79 mm[Hg] Marilynn Zacarias [facility] 1 10:33:10 Date Recorded Body height Body mass index (BMI) Body weight Systolic blood pressure Diastolic blood pressure Provider Name and Address Organization Details Last Updated DateTime 12/02/2022 152.4 cm 43.2 kg/m2 316159.9 1 g 126 mm[Hg] 85 mm[Hg] Marilynn Zacarias [facility] 3 14:09:40 Date Recorded Body height Body mass index (BMI) Body weight Systolic blood pressure Diastolic blood pressure Provider Name and Address Organization Details Last Updated DateTime 04/25/2021 152.4 cm 39.6 kg/m2 44639.25 g 117 mm[Hg] 88 mm[Hg] Marilynn Zacarias [facility] 1 12:22:04 Date Recorded Body height Body mass index (BMI) Body weight Systolic blood pressure Diastolic blood pressure Provider Name and Address Organization Details Last Updated DateTime 04/29/2024 152.4 cm 47.5 kg/m2 893958.9 5 g 123 mm[Hg] 83 mm[Hg] Marilynn Zacarias [facility] 4 12:33:06 Date Recorded Body height Body mass index (BMI) Body weight Systolic blood pressure Diastolic blood pressure Provider Name and Address Organization Details Last Updated DateTime 08/01/2024 152.4 cm 47.5 kg/m2 739331.9 5 g 129 mm[Hg] 82 mm[Hg] Toshia Leonides [facility] 4 09:36:33 Social History Question Answer Notes LastModified by Organizat ion Details LastModified Time Tobacco Smoking Status Current Every Day Smoker Marilynn Zacarias [facility] 12/02/2022 14:10:24 If You Are , What Was Your Level Of Alcohol Consumption Prior To ? None [email or web address] Information not available 12/02/2022 How Many Years Have You Consumed Alcohol? 13 [email or web address] Information not available 12/02/2022 Are You Blind Or Do You Have Difficulty Seeing? Yes Information not available 12/02/2022 What Is Your Level Of Caffeine Consumption? Occasional Information not available 12/02/2022 How Much Tobacco Do You Chew? None [email or web address] Information not available 04/29/2024 In The 14 Days Before Symptom Onset, Have You Had Close Contact With A Laboratory-confir med COVID-19 While That Case Was Ill? No [email or web address] Information not available 11/19/2020 In The 14 Days Before Symptom Onset, Have You Had Close Contact With A Person Who Is Under Investigation For COVID-19 While That Person Was Ill? No Information not available 11/19/2020 Have You Been To An Area Known To Be High Risk For COVID-19? No Information not available 04/29/2024 Are You Deaf Or Do You Have Serious Difficulty Hearing? No [email or web address] Information not available 04/25/2021 What Type Of Diet Are You Following? REGULAR [email or web address] Information not available 04/25/2021 What Is The Highest Grade Or Level Of School You Have Completed Or The Highest Degree You Have Received? PA02842-5 [email or web address] Information not available 12/02/2022 Are There Any Guns Present In Your Home? No [email or web address] Information not available 12/02/2022 What Was The Date Of Your Most Recent Tobacco Screening? 04/29/2024 [email or web address] Information not available 04/29/2024 Have You Ever Been Counseled For Unhealthy Alcohol Use? No [email or web address] Information not available 12/02/2022 Do You Use Protection During Sex? Always [email or web address] Information not available 04/29/2024 Do You Use Your Seat Belt Or Car Seat Routinely? Yes [email or web address] Information not available 11/19/2020 Do You Have Smoke And Carbon Monoxide Detectors In Your Home? Yes [email or web address] Information not available 11/19/2020 How Much Tobacco Do You Smoke? No [email or web address] Information not available 12/02/2022 Do You Use Sunscreen Routinely? Yes [email or web address] Information not available 04/29/2024 Has Tobacco Cessation Counseling Been Provided? No [email or web address] Information not available 12/02/2022 Have You Used IV Drugs? No [email or web address] Information not available 12/02/2022 Do You Have Difficulty Walking Or Climbing Stairs? No [email or web address] Information not available 12/02/2022 Sex: Unknown Functional Status Question Answer Note LastModified by Organizat ion Details LastModified Time Do you use any illicit or recreational drugs? No [email or web address] Information not available 11/19/2020 Do you or have you ever used any other forms of tobacco or nicotine? No [email or web address] Information not available 12/02/2022 What is your level of alcohol consumption? Occasional [email or web address] Information not available 11/19/2020 Are you able to walk? YESWOREST [email or web address] Information not available 04/25/2021 Are you able to care for yourself? 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 No [email or web address] Information not available 12/02/2022 What is your exercise level? Occasional [email or web address] Information not available 03/20/2020 Mental Status Question Answer Note LastModified by Organization D etails LastModified Time Do you feel stressed (tense, restless, nervous, or anxious, or unable to sleep at night)? [id number] Information not available 12/02/2022 Family History Relationship Description Onset Age of this Age Resolved Age Notes LastModified by Organization Details LastModified Time Father Substance abuse [email or web address] Not available 12/02 14:10:22 Father Asthma [email or web address] Not available 0 04/29/2024 12:18:46 Paternal Uncle Depressive disorder [email or web address] Not available 12/02 14:10:22 Paternal Uncle Substance abuse Not available 12/02 14:10:22 Mother Anemia [email or web address] Not available 0 04/29/2024 12:18:46 Notes:BOTH MOM AND DAD ARE A DOPTED Father: Asthma Mother: Anemia Medical History Condition Response Allergies (Food, seasonal, environmental ) N Other N Breast Cancer N Drug/Latex Allergies/Reactions N Blood Transfusion N Dermatologic Disorders N Lung Disease N [...] ICD10 Code Diagnosis Note [id number] Cindy Cortes [facility] [address] [address] 03/20/2020 11:23:47 03/20/2020 12:38:16 Gynecologic examination 11476504 Z01.419 Surveillan ce of oral contraception 052903765 Z30.41 [id number] Cindy Cortes [facility] [address] [address] 11/19/2020 10:13:16 11/19/2020 12:31:12 Contraception care management 238323725 Z30.9 [id number] Cindy Cortes [facility] [address],[place] [address] 04/25/2021 12:00:59 04/25/2021 13:31:06 Gynecologic examination 50202574 Z01.419 [id number] Cindy Cortes [facility] [address],[place] [address] 12/02/2022 13:54:10 12/02/2022 14:54:32 Gynecologic examination 61142169 Z01.419 [id number] Nicolas Walker MD [place] [address],[place] [address] 04/29/2024 12:17:18 04/29/2024 13:08:20 Abnormal uterine bleeding 6095914012 9100 N93.9 Gynecologi c examination 62436567 Z01.419 Annual gynecologi alexys exam performed. Patient [...] Pap smear- done laboratory evaluation - done [id number] Nicolas Walker MD [place] [address] [address] 08/01/2024 09:11:59 08/01/2024 10:09:46 Gynecologic examination 63221390 Z01.419 Z11.51 Venereal d isease screening 018971313 Z11.3 This patient is 29-year-ol d female [...] and alternativ es. Contracept ion care management 592269522 Z30.9 Health Concerns Section Related Observation LastModified by Organization Detai ls LastModified Time None Recorded Concern Status LastModified by Organization Details LastModified Time None Recorded Advance Directives Directive None Recorded Payers Insurance Date Sequence Insurance Name Policy Number Policy Lin Covered Member ID Lin Member ID Guarantor Name 07/30/2024 1 [place] [id number] Niurka Ellis [id number] Niurka Ellis 05/02/2021 1 [facility] - DOS PRIOR TO 2021 (MEDICAID REPLACEMENT - HMO) Niurka Ellis [id number] Niurka Ellis 11/18/2022 1 [facility] - DOS ON OR AFTER 21 (MEDICAID REPLACEMENT - HMO) Niurka Ellis [id number] Niurka Ellis 12/02/2022 1 [facility] [id number] Niurka Ellis [id number] Niurka Ellis 04/21/2024 1 [facility] [id number] Niurka Ellis [id number] Niurka Ellis Notes Date Note Type Note Provider Name and Address Organization Details Recorded Time 11/19/2020 text/html started, carlos t o try and fix heavy bleeding, bleeding very minimal now but cramping increased also some anxiety with new pill. also hx of ovrian cysts would like follow up Cindy Cortes CNM [address], [place], [address], [facility] 11/19/2020 12:22:13 04/25/2021 text/html Annual GYNReport [...] 2021 Cindy Cortes CNM [address], [place], [address], [facility] 04/25/2021 12:47:59 12/02/2022 text/html Annual GYNReport [...] testing Cindy Cortes CNM [address], [place], [address], [facility] 12/02/2022 14:24:16 04/29/2024 text/html Annual GYNReport ed bypatient.History:no gynecologic complaints Menstrual cycle:Normal menses Urinary symptoms:No hematuria; No incontinence Vulva:No genital lesion Vagina:Normal vaginal discharge Breast:No breast pain; No breast lump Current Contraception: control not practiced Menopausal Symptoms:No menopausal symptoms Psychological symptoms:No depression; No anxiety Preventive measures:Encourage self breast examination; Encourage regular exercise Nicolas Walker MD [address], [place], [address], [facility] 04/29/2024 13:07:17 08/01/2024 text/html This patient [...] alternatives. Nicolas Walker MD [address], [place], [address], [facility] 08/01/2024 10:03:33 OBGyn Episode No OBEpisode recorded.
--- OUTSIDE RECORDS SUMMARY | 2025-03-09 08:45 | XMS_ITS | Patient Health Record ---
Author Organization [facility] Address [address] [place] [address] Care Team Providers Care Spring Inspector Name Role Phone Jennifer Garcia Primary Care [...] Status Risk Notes Problem Generalized anxiety disorder (07367026) Generalized anxiety disorder (F41.1) 03/19/20 21 Active confirmed r/o OCD Problem Mood disorder (72285346) Mood disorder (F39) Active confirmed Likely Bipolar I Problem Post traumatic stress disorder (PTSD) (F43.10) 03/19/20 21 Active confirmed PCL-5 42 Plan Of Treatment No Information Insurance Providers Payer Name Payer Address Payer Phone Subscriber Number Group Number Insured Name Patient Relationship to Insured Coverage Start Date Coverage End Date [facility] Att Claims Department [address] [place] [phone] [id number] Niurka Ellis Self - patient is the insured [address] [facility] Attn Claims Department [address] [place] [address] [phone] Niurka Ellis Self - patient is the insured 1 Medical (General) History Surgical History Surgery Date(Month/Year)
--- NOTE | 2025-03-28 12:02 | WPDHOLTEREM ---
Holter/Event Monitor Holter/Event Monitor Date of procedure: 03/09/25 Holter/Event Procedure: 3-7 Day Holter Monitor Indications: Palpitations Conclusion: 1. 7 days holter monitor on 03/09/25. 2. Underlying rhythm is sinus rhythm. HR range 47-156 bpm; average HR 70 bpm. HR at 47 bpm was on 03/14/25 at 4:17 am. HR at 156 bpm was on 03/15/25 at 6:03 pm. 3. There are rare premature supraventricular complexes, rare supraventricular couplets, and rare supraventricular triplets. No supraventricular tachycardia. 4. There are rare premature ventricular complexes. No ventricular tachycardia. 5. No significant pauses greater than 3 seconds. 6. Patient reports 17 episodes of symptoms of irregular beats, lightheadedness, heart racing, chest pain, shortness of breath which demonstrate sinus rhythm, HR range 54-107 bpm with 7 episodes with PAC's.
== END 2025-03-09 08:40 | disposition home or self-care (01) ==
LOC: ANHCARD 08:42
PROVIDERS: PCP Nurse Practitioner Family; Visit Provider Nurse Practitioner Family
DX: R06.02 Shortness of breath (principal); R07.9 Chest pain, unspecified; R00.2 Palpitations
CPT/HCPCS: 93017; 93242; 93306